=== PATIENT | female | born 1970 | race Caucasian/White ===

== ENCOUNTER 2016-09-28 15:51 | Emergency (ER) | payer OTHER ==
[~2016-09-28] VITALS: Ht 165.1 cm; Wt 119.5 kg
[2016-09-28 16:01] VITALS: TEMP 37; Ht 165.1 cm; Wt 119.5 kg
[2016-09-28] MEDS ORDERED: SODIUM CHLORIDE 0.9% 1000ML 1,000 ML IV STA (16:11)
[2016-09-28] MEDS ORDERED: KETOROLAC TROMETHAMINE 30 MG/ML VIAL IV STA (16:11)
[2016-09-28] MEDS ORDERED: ONDANSETRON INJ 2 MG/ML 2 ML VIAL IV STA (16:11)
[2016-09-28] MEDS ORDERED: ACETAMINOPHEN 500 MG TAB PO STA (16:11)
[2016-09-28] MEDS ORDERED: HYDROmorphone INJ 1 MG/ML SYR IV STA ×2 (16:11)
--- NOTE | 2016-09-28 16:17 | EMERGENCY ROOM VISIT NOTE ---
History Report prepared by Elaine: Luis E Puckett Under the Supervision of: Dr. Paolo Dubois M.D. First contact with patient: 16:06 Chief Complaint: URINARY SYMPTOMS Stated Complaint: UTI/KIDNEY INFECTION Nursing Triage Summary: urinary tract infection. pain started about 3 hrs ago. hx of kidney infection History of Present Illness The patient is a 46 year old female who presents to the Emergency Room with complaints of worsening back pain since yesterday. The patient states that the pain has significantly worsened in the past three hours. She currently rates her discomfort as a 10/10 in severity. Per the mother, the patient has been urinating very frequently, however very little urine comes out. The patient additionally complains of abdominal pain. She states that she has a past medical history of UTIs and she has a family history of kidney stones. Source of History: patient, parent Onset: two days ago Position: back Symptom Intensity: 10/10 Timing: worsening Associated Symptoms: + abdominal pain, + urinary symptoms Review of Systems See HPI for pertinent positives & negatives. A total of 10 systems reviewed and were otherwise negative. Past Medical & Surgical Medical Problems: (1) UTI (urinary tract infection) Family History Diabetes mellitus Kidney stones Social History Smoking Status: Current Every Day Smoker Drug Use: none Marital Status: Occupation Status: employed Current/Historical Medications Scheduled Ondasetron Odt (Zofran Odt), 4 MG SL Q6H Tamsulosin Hcl (Flomax), 0.4 MG PO DAILY Scheduled PRN Oxycodone/Acetaminophen 5MG/325MG (Percocet 5MG/325MG), 1-2 TABLETS PO Q4H PRN for Pain Allergies Coded Allergies: No Known Allergies (Unverified , 09/28/16) Physical Exam Vital Signs Date Time Temp Pulse Resp B/P Pulse Ox O2 Delivery O2 Flow Rate FiO2 09/28/16 18:57 84 18 119/61 98 Room Air 09/28/16 16:01 37.0 91 18 169/108 99 Room Air Physical Exam CONSTITUTIONAL: Severe painful distress. HEENT: No icterus, moist mucous membranes NECK: No meningismus, trachea is midline. CARDIOVASCULAR: Regular rate, normal perfusion RESPIRATORY: Unlabored breathing. Clear to auscultation. GASTROINTESTINAL: Non-tender GENITOURINARY: Diffuse bilateral flank pain. MUSCULOSKELETAL: Full range of motion NEUROLOGIC: No acute gross focal deficits. PSYCHIATRIC: Normal affect SKIN: Normal for ethnicity. Medical Decision & Procedures ER Provider Diagnostic Interpretation: Radiology results as stated below per my review and radiologist interpretation. CT SCAN OF THE ABDOMEN AND PELVIS WITHOUT IV CONTRAST CLINICAL HISTORY: Urinary tract infection. COMPARISON STUDY: Abdominal CT dated 06/07/2012. TECHNIQUE: CT scan of the abdomen and pelvis is performed from the lung bases to the proximal femora. Images are reviewed in the axial, sagittal, and coronal planes. IV contrast was not administered for this examination as per the referring clinician. The examination is degraded by large body habitus and by streak artifact from the body wall abutting the CT gantry. Automated dose control exposure was utilized. CT DOSE: 2210.89 mGy.cm FINDINGS: Lung bases: The heart is normal in size and without pericardial effusion. There is a calcified granuloma in the left lower lobe. The lung bases are otherwise clear noting dependent atelectasis. Liver: The unenhanced liver is enlarged, measuring 22.3 cm in length. The liver demonstrates diffusely diminished attenuation consistent with hepatic steatosis. There is mild central intrahepatic biliary ductal dilatation. Gallbladder: Surgically absent noting clips in the gallbladder fossa. Spleen: The spleen is enlarged, measuring 15 cm in length. Pancreas: Unremarkable. Adrenal glands: Unremarkable. Kidneys: The unenhanced kidneys are normal in size. There is a 4 mm obstructing calculus in the right vesicoureteral junction seen on axial image #415. This causes mild to moderate right hydroureteronephrosis. There is associated right-sided perinephric and periureteric stranding. There is an additional 4 mm calculus in the proximal right ureter seen on image #248 at the level of L3-L4. No additional right renal calculi are identified. No left renal calculi are seen and there is no left-sided hydronephrosis. There is no evidence of contour deforming renal mass lesion. Abdominal vasculature: The abdominal aorta is normal in course and caliber noting mild to moderate and age-advanced atherosclerotic calcification. Bowel: The small bowel and colon are normal in course and caliber. The appendix is well-visualized and normal. Peritoneum: There is no intraperitoneal free air or abdominal ascites. There is a fat-containing umbilical hernia. Lymphadenopathy: None. Pelvic viscera: The bladder is decompressed and grossly normal as visualized. The uterus is surgically absent. No adnexal lesion is seen. Skeletal structures: No lytic or blastic lesions are seen. IMPRESSION: 1. There is a 4 mm obstructing calculus at the right vesicoureteral junction. This causes mild to moderate right-sided hydroureteronephrosis and there is associated right-sided perinephric and periureteric stranding. 2. There is an additional 4 mm calculus in the right proximal ureter as above. 3. No additional calculi are seen in either kidney. 4. Hepatomegaly and hepatic steatosis. 5. Splenomegaly. 6. There is mild to moderate and age advanced atherosclerotic calcification of the abdominal aorta 7. Status post hysterectomy and cholecystectomy. Electronically signed by: Steven Ortega M.D. 09/28/2016 5:37 PM Dictated Date/Time: 09/28/2016 5:30 PM Laboratory Results 09/28/16 16:35 Red Blood Count 5.15, Mean Corpuscular Volume 88.3, Mean Corpuscular Hemoglobin 31.7, Mean Corpuscular Hemoglobin Concent 35.8, Mean Platelet Volume 10.1, Neutrophils (%) (Auto) 76.2, Lymphocytes (%) (Auto) 16.8, Monocytes (%) (Auto) 5.6, Eosinophils (%) (Auto) 0.7, Basophils (%) (Auto) 0.3, Neutrophils # (Auto) 9.17, Lymphocytes # (Auto) 2.03, Monocytes # (Auto) 0.67, Eosinophils # (Auto) 0.09, Basophils # (Auto) 0.04 09/28/16 16:35 Test 09/28/16 16:35 White Blood Count 12.05 K/uL (4.8-10.8) Red Blood Count 5.15 M/uL (4.2-5.4) Hemoglobin 16.3 g/dL (12.0-16.0) Hematocrit 45.5 % (37-47) Mean Corpuscular Volume 88.3 fL (80-100) Mean Corpuscular Hemoglobin 31.7 pg (25-34) Mean Corpuscular Hemoglobin Concent 35.8 g/dl (32-36) Platelet Count 249 K/uL (130-400) Mean Platelet Volume 10.1 fL (7.4-10.4) Neutrophils (%) (Auto) 76.2 % Lymphocytes (%) (Auto) 16.8 % Monocytes (%) (Auto) 5.6 % Eosinophils (%) (Auto) 0.7 % Basophils (%) (Auto) 0.3 % Neutrophils # (Auto) 9.17 K/uL (1.4-6.5) Lymphocytes # (Auto) 2.03 K/uL (1.2-3.4) Monocytes # (Auto) 0.67 K/uL (0.11-0.59) Eosinophils # (Auto) 0.09 K/uL (0-0.5) Basophils # (Auto) 0.04 K/uL (0-0.2) RDW Standard Deviation 41.0 fL (36.4-46.3) RDW Coefficient of Variation 12.8 % (11.5-14.5) Immature Granulocyte % (Auto) 0.4 % Immature Granulocyte # (Auto) 0.05 K/uL (0.00-0.02) Urine Color YELLOW Urine Appearance CLEAR (CLEAR) Urine pH 5.5 (4.5-7.5) Urine Specific [place] 1.005 (1.000-1.030) Urine Protein NEG (NEG) Urine Glucose (UA) NEG (NEG) Urine Ketones NEG (NEG) Urine Occult Blood 2+ (NEG) Urine Nitrite NEG (NEG) Urine Bilirubin NEG (NEG) Urine Urobilinogen NEG (NEG) Urine Leukocyte Esterase NEG (NEG) Urine WBC (Auto) 1-5 /hpf (0-5) Urine RBC (Auto) 0-4 /hpf (0-4) Urine Hyaline Casts (Auto) 1-5 /lpf (0-5) Urine Epithelial Cells (Auto) >30 /lpf (0-5) Urine Bacteria (Auto) NEG (NEG) Anion Gap 10.0 mmol/L (3-11) Est Creatinine Clear Calc Drug Dose 100.0 ml/min Estimated GFR () 87.2 Estimated GFR (Non- 75.2 BUN/Creatinine Ratio 9.3 (10-20) Calcium Level 9.2 mg/dl (8.5-10.1) C-Reactive Protein 1.38 mg/dl (0-0.29) Procalcitonin 0.05 ng/mL (0-0.5) Labs reviewed by ED physician. Medications Administered Medications (Trade) Dose Ordered Sig/Guillermina Route Start Time Stop Time Status Last Admin Dose Admin Acetaminophen (Tylenol Tab) 1,000 mg NOW STAT PO 09/28/16 16:11 09/28/16 16:14 DC 09/28/16 16:42 1,000 MG Hydromorphone HCl 1 mg 1 mg PRN STAT IV 09/28/16 16:11 09/28/16 16:14 DC 09/28/16 16:41 1 MG Sodium Chloride (Nss 1000ml) 1,000 ml @ 0 mls/hr Q0M STAT IV 09/28/16 16:11 09/28/16 16:14 DC 09/28/16 16:38 999 MLS/HR Ondansetron HCl (Zofran Inj) 4 mg NOW STAT IV 09/28/16 16:11 09/28/16 16:14 DC 09/28/16 16:38 4 MG Ketorolac Tromethamine (Toradol Inj) 30 mg NOW STAT IV 09/28/16 16:11 09/28/16 16:14 DC 09/28/16 16:40 30 MG ED Course 1606: Past medical records reviewed. The patient was evaluated in room B8. A complete history and physical examination was performed. 1611: Dilaudid Inj 1mg IV, Toradol Inj 30mg IV, Zofran Inj 4mg IV, Sodium Chloride 1000 ml @ 0 mls/hr wide open IV, Dilaudid Inj 1mg IV, Tylenol Tab 1000mg PO 1628: I reevaluated the patient, and she was resting 1911: Upon reexamination the patient is feeling better. I discussed results and treatment plan with the patient. She verbalizes agreement and understanding. The patient is ready for discharge. Medical Decision Differential diagnoses include but are not limited to; kidney stone. A 6-year-old presented to the emergency room with severe right-sided flank tenderness with radiation to groin. CT positive for 4 mm stone. Comfortable on reexam 7:20 PM. Percocet, Zofran, Flomax and understands to follow-up with urologist. Impression Primary Impression: Kidney stone Scribe Attestation The scribe's documentation has been prepared under my direction and personally reviewed by me in its entirety. I confirm that the note above accurately reflects all work, treatment, procedures, and medical decision making performed by me. Departure Information Dispostion Home / Self-Care Prescriptions Ondasetron Odt (ZOFRAN ODT) 4 Mg Tab 4 MG SL Q6H for Nausea, #20 TAB Prov: Paolo Dubois MD 09/28/16 Oxycodone/Acetaminophen 5MG/325MG (PERCOCET 5MG/325MG) Tab 1-2 TABLETS PO Q4H Y for Pain, #20 TAB Prov: Paolo Dubois MD 09/28/16 Tamsulosin Hcl (FLOMAX) 0.4 Mg Cap 0.4 MG PO DAILY, #10 CAP Prov: Paolo Dubois MD 09/28/16 Referrals Ganga Pina M.D. (PCP) Forms HOME CARE DOCUMENTATION FORM, IMPORTANT VISIT INFORMATION Patient Instructions ED [facility], [facility]
[2016-09-28 16:54] LABS: BASO % 0.3 %; BASO ABS # 0.04 K/uL (0-0.2); COMPLETE YES; EOS % 0.7 %; HEMATOCRIT 45.5 % (37-47); IG% 0.4 %; LYMPH % 16.8 %; LYMPH ABS # 2.03 K/uL (1.2-3.4); MEAN CELL VOLUME 88.3 fL (80-100); MEAN CORPUSCULAR HEMOGLOBIN 31.7 pg (25-34); MEAN CORPUSCULAR HGB CONC 35.8 g/dl (32-36); MEAN PLATELET VOLUME 10.1 fL (7.4-10.4); MONO % 5.6 %; NEUT % 76.2 %; PLATELET COUNT 249 K/uL (130-400); RED BLOOD COUNT 5.15 M/uL (4.2-5.4); WHITE BLOOD COUNT 12.05 K/uL (4.8-10.8)
[2016-09-28 17:17] LABS: BUN/CREATININE RATIO 9.3 (10-20); C-REACTIVE PROTEIN 1.38 mg/dl (0-0.29); CALCIUM 9.2 mg/dl (8.5-10.1); CREATININE 0.92 mg/dl (0.60-1.20); POTASSIUM 3.5 mmol/L (3.5-5.1)
[2016-09-28 17:35] LABS: URINE APPEARANCE CLEAR (CLEAR); URINE BILIRUBIN NEG (NEG); URINE COLOR YELLOW; URINE EPITHELIAL CELL AUTO >30 /lpf (0-5); URINE NITRITE NEG (NEG); URINE PH 5.5 (4.5-7.5); URINE SPECIFIC GRAVITY 1.005 (1.000-1.030); UROBILINOGEN NEG (NEG); ZZUR CULT IF INDIC CLEAN CATCH NO
[2016-09-28 17:37] LABS: MANUAL MICROSCOPIC REQUIRED? NO; REVIEW REQ? NO
--- NOTE | 2016-09-28 17:38 | DIAGNOSTIC IMAGING REPORT ---
CT SCAN OF THE ABDOMEN AND PELVIS WITHOUT IV CONTRAST CLINICAL HISTORY: Urinary tract infection. COMPARISON STUDY: Abdominal CT dated 06/07/2012. TECHNIQUE: CT scan of the abdomen and pelvis is performed from the lung bases to the proximal femora. Images are reviewed in the axial, sagittal, and coronal planes. IV contrast was not administered for this examination as per the referring clinician. The examination is degraded by large body habitus and by streak artifact from the body wall abutting the CT gantry. Automated dose control exposure was utilized. CT DOSE: 2210.89 mGy.cm FINDINGS: Lung bases: The heart is normal in size and without pericardial effusion. There is a calcified granuloma in the left lower lobe. The lung bases are otherwise clear noting dependent atelectasis. Liver: The unenhanced liver is enlarged, measuring 22.3 cm in length. The liver demonstrates diffusely diminished attenuation consistent with hepatic steatosis. There is mild central intrahepatic biliary ductal dilatation. Gallbladder: Surgically absent noting clips in the gallbladder fossa. Spleen: The spleen is enlarged, measuring 15 cm in length. Pancreas: Unremarkable. Adrenal glands: Unremarkable. Kidneys: The unenhanced kidneys are normal in size. There is a 4 mm obstructing calculus in the right vesicoureteral junction seen on axial image #415. This causes mild to moderate right hydroureteronephrosis. There is associated right-sided perinephric and periureteric stranding. There is an additional 4 mm calculus in the proximal right ureter seen on image #248 at the level of L3-L4. No additional right renal calculi are identified. No left renal calculi are seen and there is no left-sided hydronephrosis. There is no evidence of contour deforming renal mass lesion. Abdominal vasculature: The abdominal aorta is normal in course and caliber noting mild to moderate and age-advanced atherosclerotic calcification. Bowel: The small bowel and colon are normal in course and caliber. The appendix is well-visualized and normal. Peritoneum: There is no intraperitoneal free air or abdominal ascites. There is a fat-containing umbilical hernia. Lymphadenopathy: None. Pelvic viscera: The bladder is decompressed and grossly normal as visualized. The uterus is surgically absent. No adnexal lesion is seen. Skeletal structures: No lytic or blastic lesions are seen. IMPRESSION: 1. There is a 4 mm obstructing calculus at the right vesicoureteral junction. This causes mild to moderate right-sided hydroureteronephrosis and there is associated right-sided perinephric and periureteric stranding. 2. There is an additional 4 mm calculus in the right proximal ureter as above. 3. No additional calculi are seen in either kidney. 4. Hepatomegaly and hepatic steatosis. 5. Splenomegaly. 6. There is mild to moderate and age advanced atherosclerotic calcification of the abdominal aorta 7. Status post hysterectomy and cholecystectomy. Electronically signed by: Steven Ortega M.D. 09/28/2016 5:37 PM Dictated Date/Time: 09/28/2016 5:30 PM
[2016-09-28 18:57] VITALS: BP 119/61; PULSE 84; O2SAT 98
[2016-09-28] MEDS ORDERED: OXYC-57 PO (18:59)
[2016-09-28] MEDS ORDERED: TAMS0.4C38 PO (18:59)
[2016-09-28] MEDS ORDERED: ONDA4TAB10 SL (18:59)
[2016-11-25] MEDS ORDERED: OXYC1TAB3 PO (11:18)
[2016-11-25] MEDS ORDERED: CIPR-255 PO (11:18)
[2016-11-25] MEDS ORDERED: TAMS0.4C38 PO (11:18)
[2016-11-27] MEDS ORDERED: OXYC-57 PO (10:44)
[2016-11-27] MEDS ORDERED: CIPR1TAB11 PO (11:17)
== END 2016-09-28 19:23 | disposition home or self-care (01) ==
LOC: C.EDB 15:51
DX: N20.2 Calculus of kidney with calculus of ureter (principal); F17.200 Nicotine dependence, unspecified, uncomplicated; Z87.440 Personal history of urinary (tract) infections; Z79.899 Other long term (current) drug therapy; Z83.3 Family history of diabetes mellitus; Z84.1 Family history of disorders of kidney and ureter

== ENCOUNTER 2016-10-31 13:58 | Emergency (ER) | payer OTHER ==
[~2016-10-31] VITALS: Ht 165.1 cm; Wt 116.8 kg
[~2016-10-31 13:58] MED LIST: ONDA4TAB10 SL; OXYC-57 PO
[2016-10-31 14:02] VITALS: TEMP 37.1; Ht 165.1 cm; Wt 116.8 kg
[2016-10-31] MEDS ORDERED: METHYLPREDNISOLONE 125 MG VIAL IV STA (14:26)
[2016-10-31] MEDS ORDERED: ONDANSETRON INJ 2 MG/ML 2 ML VIAL IV STA (14:26)
[2016-10-31] MEDS ORDERED: KETOROLAC TROMETHAMINE 30 MG/ML VIAL IV STA (14:26)
[2016-10-31] MEDS ORDERED: SODIUM CHLORIDE 0.9% 1000ML 1,000 ML IV ONE ×2 (14:30)
[2016-10-31] MEDS ORDERED: ALBUT/IPRATROP 3MG/0.5MG NEB 3 ML VIAL INH ONE (14:30)
[2016-10-31 15:16] LABS: BUN/CREATININE RATIO 10.5 (10-20); CALCIUM 9.1 mg/dl (8.5-10.1); CREATININE 0.95 mg/dl (0.60-1.20); POTASSIUM 4.2 mmol/L (3.5-5.1)
[2016-10-31 15:19] LABS: ALB/GLOB RATIO 1.1 (0.9-2)
[2016-10-31 15:56] LABS: BASO % 0.2 %; BASO ABS # 0.02 K/uL (0-0.2); COMPLETE YES; EOS % 0.2 %; HEMATOCRIT 45.4 % (37-47); IG% 0.3 %; LYMPH % 8.4 %; LYMPH ABS # 1.04 K/uL (1.2-3.4); MEAN CELL VOLUME 88.5 fL (80-100); MEAN CORPUSCULAR HEMOGLOBIN 31.4 pg (25-34); MEAN CORPUSCULAR HGB CONC 35.5 g/dl (32-36); MEAN PLATELET VOLUME 10.5 fL (7.4-10.4); MONO % 3.1 %; NEUT % 87.8 %; PLATELET COUNT 158 K/uL (130-400); RED BLOOD COUNT 5.13 M/uL (4.2-5.4); WHITE BLOOD COUNT 12.41 K/uL (4.8-10.8)
[2016-10-31 16:05] LABS: URINE APPEARANCE TURBID (CLEAR); URINE COLOR DK YELLOW; URINE EPITHELIAL CELL AUTO >30 /lpf (0-5); URINE NITRITE POS (NEG); URINE SPECIFIC GRAVITY 1.025 (1.000-1.030); UROBILINOGEN NEG (NEG); ZZUR CULT IF INDIC CLEAN CATCH YES
--- NOTE | 2016-10-31 16:16 | DIAGNOSTIC IMAGING REPORT ---
ABDOMEN 2VIEW W/PA CHEST RTN CLINICAL HISTORY: Cough. Vomiting COMPARISON STUDY: No previous studies for comparison. FINDINGS: Minimal bibasilar parenchymal infiltrates. Mid and upper lungs are clear. Bowel pattern is nonobstructive. Several pelvic vascular calcifications IMPRESSION: Minimal bibasilar parenchymal infiltrates.. 2. Nonobstructive bowel pattern. Electronically signed by: Nikita Reese M.D. 10/31/2016 4:15 PM Dictated Date/Time: 10/31/2016 4:11 PM
[2016-10-31 16:23] LABS: MANUAL MICROSCOPIC REQUIRED? NO; REVIEW REQ? YES; URINE BILIRUBIN NEG (NEG)
[2016-10-31] MEDS ORDERED: LEVAQUIN 500MG / 100ML D5W IV ONE (16:30)
[2016-10-31] MEDS ORDERED: PRED20TA PO (16:51)
[2016-10-31] MEDS ORDERED: LEVO-366 PO (16:51)
[2016-10-31 17:28] VITALS: BP 168/86; PULSE 81; O2SAT 95
--- NOTE | 2016-10-31 20:03 | EMERGENCY ROOM VISIT NOTE ---
History First contact with patient: 14:19 Chief Complaint: ILLNESS Stated Complaint: BRONCHITIS, SOB, DIZZY, VOMITING History of Present Illness The patient is a 46 year old female who presents to the Emergency Room with complaints of cough and fever for the past 5 days. The patient states that today she coughed so hard that she had vomiting. When she coughs she will have dizzy spells. The patient does smoke, but has not been able to do so because of her symptoms. She does not have known exposure to disease. She has not had relief with dbal-ioi-duizwnm medication and rates her current discomfort a 9/ 10. She has not been with distinct chest pain or shortness of breath at rest. When she coughs she will have episodes of shortness of breath. She does not have extremity pain or swelling. Review of Systems More than 10 systems were reviewed and otherwise negative with the exception of history of present illness. Past Medical/Surgical History Medical Problems: (1) UTI (urinary tract infection) Family History Diabetes mellitus Kidney stones No pertinent family history Social History Smoking Status: Current Every Day Smoker Drug Use: none Marital Status: Occupation Status: employed Current/Historical Medications Scheduled Levofloxacin (Levaquin), 500 MG PO DAILY Prednisone (Prednisone), 0 PO DAILY Allergies Coded Allergies: No Known Allergies (Unverified , 09/28/16) Physical Exam Vital Signs Date Time Temp Pulse Resp B/P Pulse Ox O2 Delivery O2 Flow Rate FiO2 10/31/16 17:28 81 17 168/86 95 Room Air 10/31/16 16:12 83 18 152/68 94 Room Air 10/31/16 14:02 37.1 73 22 175/83 95 Room Air Pain Rating (0-10): 0 Physical Exam VITALS: Vitals are noted on the nurse's note and reviewed by myself. Vital signs stable. GENERAL: Well-developed, well-nourished, white female, who is coughing throughout the examination. EARS: External ear normal. External auditory canals clear, tympanic membranes pearly [place] without erythema or effusion bilaterally. EYES: Pupils equal round and reactive to light and accommodation. Conjunctivae without injection, sclerae without icterus. Extraocular movements intact. NOSE: Patent, turbinates without inflammation or discharge. MOUTH: Mucous membranes moist. Tonsils are not enlarged. Pharynx without erythema, blood, or exudate. Uvula midline. Airway patent. NECK: Supple without nuchal rigidity. No lymphadenopathy. No thyromegaly. Cervical spine is nontender. HEART: Regular rate and rhythm without murmurs gallops or rubs. LUNGS: Diffuse wheezing and rhonchi throughout ABDOMEN: Positive normal bowel sounds x 4. Soft, nontender, without masses or organomegaly. Medical Decision & Procedures ER Provider Diagnostic Interpretation: ABDOMEN 2VIEW W/PA CHEST RTN CLINICAL HISTORY: Cough. Vomiting COMPARISON STUDY: No previous studies for comparison. FINDINGS: Minimal bibasilar parenchymal infiltrates. Mid and upper lungs are clear. Bowel pattern is nonobstructive. Several pelvic vascular calcifications IMPRESSION: Minimal bibasilar parenchymal infiltrates.. 2. Nonobstructive bowel pattern. Laboratory Results 10/31/16 14:45 Red Blood Count 5.13, Mean Corpuscular Volume 88.5, Mean Corpuscular Hemoglobin 31.4, Mean Corpuscular Hemoglobin Concent 35.5, Mean Platelet Volume 10.5, Neutrophils (%) (Auto) 87.8, Lymphocytes (%) (Auto) 8.4, Monocytes (%) (Auto) 3.1, Eosinophils (%) (Auto) 0.2, Basophils (%) (Auto) 0.2, Neutrophils # (Auto) 10.90, Lymphocytes # (Auto) 1.04, Monocytes # (Auto) 0.39, Eosinophils # (Auto) 0.02, Basophils # (Auto) 0.02 10/31/16 14:45 Test 10/31/16 14:45 10/31/16 15:05 10/31/16 15:55 White Blood Count 12.41 K/uL (4.8-10.8) Red Blood Count 5.13 M/uL (4.2-5.4) Hemoglobin 16.1 g/dL (12.0-16.0) Hematocrit 45.4 % (37-47) Mean Corpuscular Volume 88.5 fL (80-100) Mean Corpuscular Hemoglobin 31.4 pg (25-34) Mean Corpuscular Hemoglobin Concent 35.5 g/dl (32-36) Platelet Count 158 K/uL (130-400) Mean Platelet Volume 10.5 fL (7.4-10.4) Neutrophils (%) (Auto) 87.8 % Lymphocytes (%) (Auto) 8.4 % Monocytes (%) (Auto) 3.1 % Eosinophils (%) (Auto) 0.2 % Basophils (%) (Auto) 0.2 % Neutrophils # (Auto) 10.90 K/uL (1.4-6.5) Lymphocytes # (Auto) 1.04 K/uL (1.2-3.4) Monocytes # (Auto) 0.39 K/uL (0.11-0.59) Eosinophils # (Auto) 0.02 K/uL (0-0.5) Basophils # (Auto) 0.02 K/uL (0-0.2) RDW Standard Deviation 42.3 fL (36.4-46.3) RDW Coefficient of Variation 12.9 % (11.5-14.5) Immature Granulocyte % (Auto) 0.3 % Immature Granulocyte # (Auto) 0.04 K/uL (0.00-0.02) Anion Gap 8.0 mmol/L (3-11) Est Creatinine Clear Calc Drug Dose 95.5 ml/min Estimated GFR () 83.8 Estimated GFR (Non- 72.3 BUN/Creatinine Ratio 10.5 (10-20) Calcium Level 9.1 mg/dl (8.5-10.1) Total Bilirubin 0.4 mg/dl (0.2-1) Aspartate Amino Transf (AST/SGOT) 49 U/L (15-37) Alanine Aminotransferase (ALT/SGPT) 97 U/L (12-78) Alkaline Phosphatase 190 U/L (45-117) Total Protein 8.1 gm/dl (6.4-8.2) Albumin 4.2 gm/dl (3.4-5.0) Globulin 3.9 gm/dl (2.5-4.0) Albumin/Globulin Ratio 1.1 (0.9-2) Influenza Type A Antigen Neg for Influ A (NEG) Influenza Type B Antigen Neg for Influ B (NEG) Urine Color DK YELLOW Urine Appearance TURBID (CLEAR) Urine pH 5.0 (4.5-7.5) Urine Specific [place] 1.025 (1.000-1.030) Urine Protein 1+ (NEG) Urine Glucose (UA) NEG (NEG) Urine Ketones 2+ (NEG) Urine Occult Blood 3+ (NEG) Urine Nitrite POS (NEG) Urine Bilirubin NEG (NEG) Urine Urobilinogen NEG (NEG) Urine Leukocyte Esterase TRACE (NEG) Urine WBC (Auto) 10-30 /hpf (0-5) Urine RBC (Auto) 0-4 /hpf (0-4) Urine Hyaline Casts (Auto) /lpf (0-5) Urine Epithelial Cells (Auto) >30 /lpf (0-5) Urine Bacteria (Auto) 1+ (NEG) Urine Crystals AMORPHOUS SEDIMENT (NONE Urine Pathogenic Casts /lpf (0) Urine Yeast (Auto) (NONE PRSENT) Medications Administered Medications (Trade) Dose Ordered Sig/Guillermina Route Start Time Stop Time Status Last Admin Dose Admin Sodium Chloride (Nss 1000ml) 1,000 ml @ 999 mls/hr Q1H1M ONCE IV 10/31/16 14:30 10/31/16 15:30 DC 10/31/16 15:12 999 MLS/HR Methylprednisolone Sodium Succinate (Solu-Medrol IV) 125 mg NOW STAT IV 10/31/16 14:26 10/31/16 14:31 DC 10/31/16 14:56 125 MG Ondansetron HCl (Zofran Inj) 4 mg NOW STAT IV 10/31/16 14:26 10/31/16 14:31 DC 10/31/16 14:56 4 MG Ketorolac Tromethamine (Toradol Inj) 30 mg NOW STAT IV 10/31/16 14:26 10/31/16 14:31 DC 10/31/16 14:56 30 MG Albuterol/ Ipratropium 3 ml 3 ml NOW ONCE INH 10/31/16 14:30 10/31/16 14:31 DC 10/31/16 14:55 3 ML Sodium Chloride (Nss 1000ml) 1,000 ml @ 999 mls/hr Q1H1M ONCE IV 10/31/16 14:30 10/31/16 15:30 DC 10/31/16 14:30 999 MLS/HR Levofloxacin (Levaquin / D5W) 500 mg NOW ONCE IV 10/31/16 16:30 10/31/16 16:31 DC 10/31/16 16:30 500 MG ED Course Physical exam and history were performed. Nursing notes and EMR were reviewed. Patient appears to have coughing of flulike symptoms for the past 5 days. On exam the patient does have diffuse wheezing and rhonchi throughout. She is having a persistent cough here in the department. IV access was established and labs were obtained. The patient was hydrated with normal saline and given IV Toradol and IV Solu-Medrol. Additionally she was given a breathing treatment. Chest x-ray and abdominal x-rays were performed as the patient is having rhonchi and had some vomiting today. The patient's blood work is as above and was reviewed. She does have a very mild white blood cell count of 12,000. She does not have a significant anemia or gross electrolyte imbalance. Her LFTs are elevated, however review of the EMR in the past shows that they have been elevated previously. I recommended to her that she follow with her primary care physician for this. The patient's x-ray is as above and appears to show by basilar infiltrates. Clinically I suspect this is due to an early pneumonia, as this would correlate well with the patient's symptoms. The patient's urine also is with signs of infection with culture pending. Because of this she was given IV Levaquin here in the department. She will be given a continuation course of this medication. On reevaluation the patient had significantly improved breath sounds. She did have scattered wheezing and slight right lower lung crackles on exam. The patient appears stable for outpatient treatment, and I will add oral prednisone to her treatment. I recommended the patient follow with her PCP in the next few days for recheck of her condition. She will need a repeat x-ray to ensure resolution of the pneumonia. I suspect that her abdominal discomfort and vomiting are from her cough, and they should improve given time. The patient was otherwise invited back to the ER with any new, worsening, or concerning symptoms. She voiced understanding of this plan and rated her discomfort a 2/ 10 at the time of departure. The chart was completed utilizing [employer] Voice Recognition Software. Grammatical errors, random word insertions, pronoun errors, and incomplete sentences are an occasional consequence of this system due to software limitations, ambient noise, and hardware issues. Any formal questions or concerns about the content, text, or information contained within the body of this dictation should be directly addressed to the provider for clarification. . Medical Decision Differential diagnosis includes, but is not limited to: Myocardial infarction, dysrhythmia, pericarditis, pneumothorax, aortic aneurysm/dissection, DVT/PE, anxiety, GERD, PUD, electrolyte imbalance, thyroid disorder, pneumonia, bronchitis, pancreatitis, and others Impression Primary Impression: Pneumonia Additional Impression: Urinary tract infection Departure Information Dispostion Home / Self-Care Condition GOOD Prescriptions Prednisone (Prednisone) 20 Mg Tab 0 PO DAILY, #18 TAB 3 DAILY FOR 3 DAYS, THEN 2 DAILY FOR 3 DAYS, THEN 1 DAILY FOR 3 DAYS. Prov: Marcos Nazario PA-C 10/31/16 Levofloxacin (Levaquin) 500 Mg Tab 500 MG PO DAILY for 9 Days, #9 TAB Prov: Marcos Nazario PA-C 10/31/16 Forms HOME CARE DOCUMENTATION FORM, IMPORTANT VISIT INFORMATION Patient Instructions [facility] Additional Instructions You were seen and evaluated today on an emergency basis only. This is not a substitute for, or an effort to provide, complete comprehensive medical care. It is not possible to recognize and treat all injuries or illnesses in a single emergency department visit. For this reason it is recommended that you followup with your primary care physician this week for ongoing care and evaluation. For baseline pain relief you may alternate ibuprofen and acetaminophen every 4 hours for pain control. Take 600 mg ibuprofen (Advil) and then 4 hours later take 1000 mg acetaminophen (Tylenol). Do not take more than 3000 mg acetaminophen in a single day. Take Levaquin 500 milligrams daily for the next 9 days. Take prednisone as prescribed You are welcome to return to the emergency department anytime with new, worsening, or concerning symptoms. Problem Qualifiers
[2016-11-25] MEDS ORDERED: OXYC1TAB3 PO (11:18)
[2016-11-25] MEDS ORDERED: CIPR-255 PO (11:18)
[2016-11-25] MEDS ORDERED: TAMS0.4C38 PO (11:18)
[2016-11-27] MEDS ORDERED: OXYC-57 PO (10:44)
[2016-11-27] MEDS ORDERED: CIPR1TAB11 PO (11:17)
== END 2016-10-31 17:45 | disposition home or self-care (01) ==
LOC: C.EDB 14:00
DX: J18.9 Pneumonia, unspecified organism (principal); N39.0 Urinary tract infection, site not specified; F17.200 Nicotine dependence, unspecified, uncomplicated; Z87.440 Personal history of urinary (tract) infections; Z79.899 Other long term (current) drug therapy; Z83.3 Family history of diabetes mellitus; Z84.1 Family history of disorders of kidney and ureter

== ENCOUNTER → 2016-11-10 | Outpatient (CLI) | payer OTHER ==
[~2016-11-10] MED LIST changes: +CIPR-255 PO; +CIPR1TAB11 PO; +LEVO-366 PO; -ONDA4TAB10 SL; +OXYC1TAB3 PO; +PRED20TA PO; +TAMS0.4C38 PO
[2016-11-10 13:01] LABS: BASO % 0.2 %; BASO ABS # 0.02 K/uL (0-0.2); COMPLETE YES; EOS % 0.8 %; HEMATOCRIT 45.1 % (37-47); IG% 1.6 %; LYMPH % 26.2 %; LYMPH ABS # 3.42 K/uL (1.2-3.4); MEAN CELL VOLUME 88.6 fL (80-100); MEAN CORPUSCULAR HEMOGLOBIN 30.3 pg (25-34); MEAN CORPUSCULAR HGB CONC 34.1 g/dl (32-36); MEAN PLATELET VOLUME 10.4 fL (7.4-10.4); MONO % 5.5 %; NEUT % 65.7 %; PLATELET COUNT 216 K/uL (130-400); RED BLOOD COUNT 5.09 M/uL (4.2-5.4); WHITE BLOOD COUNT 13.07 K/uL (4.8-10.8)
[2016-11-10 13:02] LABS: URINE APPEARANCE CLEAR (CLEAR); URINE BILIRUBIN NEG (NEG); URINE COLOR YELLOW; URINE EPITHELIAL CELL AUTO 20-30 /lpf (0-5); URINE NITRITE NEG (NEG); URINE SPECIFIC GRAVITY 1.022 (1.000-1.030); UROBILINOGEN NEG (NEG)
[2016-11-10 13:07] LABS: MANUAL MICROSCOPIC REQUIRED? NO; REVIEW REQ? NO
[2016-11-10 13:17] LABS: ALKALINE PHOSPHATASE 129 U/L (45-117); ALT/SGPT 62 U/L (12-78); AST/SGOT 31 U/L (15-37)
== END | disposition home or self-care (01) ==
LOC: C.LABBFT 11:14
PROVIDERS: ATTEND Physician Assistant Medical
DX: R74.8 Abnormal levels of other serum enzymes (principal); N76.0 Acute vaginitis; B37.0 Candidal stomatitis; J18.9 Pneumonia, unspecified organism; N39.0 Urinary tract infection, site not specified

== ENCOUNTER → 2016-11-17 | Outpatient (CLI) | payer OTHER ==
[~2016-11-17] MED LIST changes: -LEVO-366 PO
--- NOTE | 2016-11-17 16:35 | DIAGNOSTIC IMAGING REPORT ---
[facility] CLINICAL HISTORY: R31.29 nephrocalcinosis COMPARISON STUDY: 10/31/2016 FINDINGS: The soft tissues, psoas shadows, renal outlines and intestinal gas pattern appear normal. There is no evidence for bowel obstruction. No abnormal abdominal calcifications are seen. IMPRESSION: Normal study. Electronically signed by: Nikita Reese M.D. 11/17/2016 4:34 PM Dictated Date/Time: 11/17/2016 4:33 PM
== END | disposition home or self-care (01) ==
LOC: C.RAD 16:00
PROVIDERS: ATTEND Physician Assistant Medical
DX: R31.29 Other microscopic hematuria (principal)

== ENCOUNTER 2016-11-23 10:06 | Emergency (ER) | payer OTHER ==
[~2016-11-23] VITALS: Ht 165.1 cm; Wt 118.2 kg
[~2016-11-23 10:06] MED LIST changes: -CIPR-255 PO; -CIPR1TAB11 PO; -OXYC-57 PO; -OXYC1TAB3 PO; -TAMS0.4C38 PO
[2016-11-23 10:11] VITALS: TEMP 37; Ht 165.1 cm; Wt 118.2 kg
[2016-11-23] MEDS ORDERED: KETOROLAC TROMETHAMINE 30 MG/ML VIAL IV STA (10:28)
[2016-11-23] MEDS ORDERED: SODIUM CHLORIDE 0.9% 1000ML 1,000 ML IV STA (10:28)
[2016-11-23] MEDS ORDERED: ONDANSETRON INJ 2 MG/ML 2 ML VIAL IV STA (10:28)
[2016-11-23 10:56] LABS: BASO % 0.2 %; BASO ABS # 0.02 K/uL (0-0.2); COMPLETE YES; EOS % 0.5 %; HEMATOCRIT 43.5 % (37-47); IG% 0.6 %; LYMPH % 10.1 %; LYMPH ABS # 1.21 K/uL (1.2-3.4); MEAN CELL VOLUME 87.3 fL (80-100); MEAN CORPUSCULAR HEMOGLOBIN 30.1 pg (25-34); MEAN CORPUSCULAR HGB CONC 34.5 g/dl (32-36); MEAN PLATELET VOLUME 9.4 fL (7.4-10.4); MONO % 5.4 %; NEUT % 83.2 %; PLATELET COUNT 203 K/uL (130-400); RED BLOOD COUNT 4.98 M/uL (4.2-5.4); WHITE BLOOD COUNT 11.95 K/uL (4.8-10.8)
[2016-11-23 11:10] LABS: MANUAL MICROSCOPIC REQUIRED? YES; REVIEW REQ? NO; SULFASALICYLIC ACID NEG (NEG); URINE APPEARANCE SLIGHTLY CLOUDY (CLEAR); URINE COLOR ORANGE
[2016-11-23 11:14] LABS: BUN/CREATININE RATIO 7.5 (10-20); CALCIUM 9.3 mg/dl (8.5-10.1); POTASSIUM 3.7 mmol/L (3.5-5.1)
[2016-11-23 11:14] LABS: URINE BACTERIA 1+ (NEG)
[2016-11-23 11:15] LABS: URINE AMORPHOUS SEDIMENT PRESENT (NONE PRSENT)
[2016-11-23 11:17] LABS: ZZUR CULT IF INDIC CLEAN CATCH YES
--- NOTE | 2016-11-23 11:33 | DIAGNOSTIC IMAGING REPORT ---
CT OF THE ABDOMEN AND PELVIS WITHOUT CONTRAST CLINICAL HISTORY: Severe right flank pain. COMPARISON STUDY: CT of the abdomen and pelvis September 28, 2016 and [facility]UB November 17, 2016. TECHNIQUE: Axial images of the abdomen and pelvis were obtained without IV contrast. Images were reviewed in the axial, sagittal, and coronal planes. FINDINGS: There is moderate right hydroureteronephrosis due to a 7 mm calculus within the distal right ureter. There is mild right perinephric and periureteral ureteral infiltration. Evaluation of the remainder of the abdomen and pelvis is suboptimal on this unenhanced exam. There is fatty infiltration of the liver. Unenhanced images of the adrenal glands and pancreas are unremarkable. There is no evidence for a bowel obstruction. There is no lymphadenopathy. No suspicious skeletal lesions are identified. Mild splenomegaly is unchanged. IMPRESSION: 1. Moderate right hydroureteronephrosis due to a 7 mm distal right ureteral calculus. 2. Fatty liver. Electronically signed by: Leonidas Hennessy M.D. 11/23/2016 11:31 AM Dictated Date/Time: 11/23/2016 11:26 AM
[2016-11-23 12:40] LABS: MANUAL MICROSCOPIC REQUIRED? YES; REVIEW REQ? NO
[2016-11-23 12:41] LABS: SULFASALICYLIC ACID NEG (NEG); URINE APPEARANCE SLIGHTLY CLOUDY (CLEAR); URINE COLOR ORANGE
[2016-11-23 12:45] LABS: URINE AMORPHOUS SEDIMENT PRESENT (NONE PRSENT)
[2016-11-23 12:46] LABS: URINE BACTERIA 1+ (NEG)
[2016-11-23 12:49] LABS: ZZURINE CULT IF INDIC CATH YES
[2016-11-23 13:01] LABS: PREG INTERNAL NEGATIVE QC NEG CLEAR BACKGROUND; PREG INTERNAL POSITIVE QC POS CONTROL LINE
[2016-11-23] MEDS ORDERED: CIPROFLOXACIN 500 MG TAB PO STA (13:49)
[2016-11-23] MEDS ORDERED: HYDROmorphone INJ 0.5 MG/0.5 ML SYR IV STA (13:52)
[2016-11-23] MEDS ORDERED: TAMS0.4C38 PO (13:55)
[2016-11-23] MEDS ORDERED: OXYC1TAB3 PO (13:55)
[2016-11-23] MEDS ORDERED: CIPR-255 PO (13:55)
[2016-11-23 14:10] VITALS: BP 162/77; PULSE 76; O2SAT 96
--- NOTE | 2016-11-23 15:56 | EMERGENCY ROOM VISIT NOTE ---
History Report prepared by Elaine: Tarun Johnson Under the Supervision of: Dr. Alex Hernandez D.O. First contact with patient: 10:14 Chief Complaint: URINARY SYMPTOMS Stated Complaint: UTI, KIDNEY STONE History of Present Illness The patient is a 46 year old female who presents to the Emergency Room with complaints of persistent urinary symptoms for the past two weeks. The patient notes she was in the ED a month ago and was treated with steroids for double pneumonia and a UTI. The patient notes that 2 weeks ago she presented to her PCP again because she was still having urinary symptoms including frequency, vaginal discomfort, and burning with urination. She denies vaginal discharge. The patient was put on Bactrim, however, it did not help relieve her symptoms. She followed up with her PCP last week when the medication wasn't working and they told her she did not have a UTI. This past week, the patient has started to have back pain, vomiting, and diarrhea. She notes she woke up 7 hours ago with vomiting and diarrhea. The patient has had kidney stones in the past and notes her symptoms feel similar. She is unsure if there is blood in her urine since she is taking a UTI medication that changes the color of her urine. Pt denies headache, change in vision, fevers, chest pain, and shortness of breath. Source of History: patient Onset: past two weeks Position: other () Timing: other (persistent) Associated Symptoms: + back pain, + diarrhea, + urinary symptoms (frequency , vaginal discomfort, burning), + vomiting, No SOB, No chest pain, No headache Note: Denies: vision changes Review of Systems See HPI for pertinent positives & negatives. A total of 10 systems reviewed and were otherwise negative. Past Medical & Surgical Medical Problems: (1) UTI (urinary tract infection) Family History Diabetes mellitus Kidney stones Social History Smoking Status: Current Every Day Smoker Drug Use: none Marital Status: Occupation Status: employed Current/Historical Medications Scheduled Ciprofloxacin Hcl (Cipro), 500 MG PO BID Tamsulosin Hcl (Flomax), 0.4 MG PO DAILY Scheduled PRN Oxycodone Immediate Rel Tab (Roxicodone Ir), 1-2 TAB PO Q4H PRN for Severe Pain Allergies Coded Allergies: No Known Allergies (Unverified , 11/23/16) Physical Exam Vital Signs Date Time Temp Pulse Resp B/P Pulse Ox O2 Delivery O2 Flow Rate FiO2 11/23/16 14:10 76 20 162/77 96 11/23/16 11:29 80 18 133/67 95 Room Air 11/23/16 10:11 37.0 91 18 166/82 97 Room Air Physical Exam GENERAL: sitting up in bed, rocking back and forth holding right flank, moderate distress. EYE EXAM: normal conjunctiva, OROPHARYNX: no exudate, no erythema, lips, buccal mucosa, and tongue normal and mucous membranes are moist NECK: supple, no nuchal rigidity, no adenopathy, non-tender LUNGS: Clear to auscultation. Normal chest wall mechanics HEART: no murmurs, S1 normal and S2 normal ABDOMEN: abdomen soft, non-tender, normo-active bowel sounds, no masses, no rebound or guarding. BACK: Back is symmetrical on inspection and there is no deformity, no midline tenderness, no CVA tenderness. SKIN: no rashes and no bruising UPPER EXTREMITIES: upper extremities are grossly normal. LOWER EXTREMITIES: No pitting edema. NEURO EXAM: Normal sensorium, cranial nerves II-XII grossly intact, normal speech, no gross weakness of arms, no gross weakness of legs. Gross sensation intact. Medical Decision & Procedures ER Provider Diagnostic Interpretation: Radiology results as stated below per my review and the radiologist's interpretation: CT OF THE ABDOMEN AND PELVIS WITHOUT CONTRAST CLINICAL HISTORY: Severe right flank pain. COMPARISON STUDY: CT of the abdomen and pelvis September 28, 2016 and [facility]UB November 17, 2016. TECHNIQUE: Axial images of the abdomen and pelvis were obtained without IV contrast. Images were reviewed in the axial, sagittal, and coronal planes. FINDINGS: There is moderate right hydroureteronephrosis due to a 7 mm calculus within the distal right ureter. There is mild right perinephric and periureteral ureteral infiltration. Evaluation of the remainder of the abdomen and pelvis is suboptimal on this unenhanced exam. There is fatty infiltration of the liver. Unenhanced images of the adrenal glands and pancreas are unremarkable. There is no evidence for a bowel obstruction. There is no lymphadenopathy. No suspicious skeletal lesions are identified. Mild splenomegaly is unchanged. IMPRESSION: 1. Moderate right hydroureteronephrosis due to a 7 mm distal right ureteral calculus. 2. Fatty liver. Electronically signed by: Leonidas Hennessy M.D. 11/23/2016 11:31 AM Dictated Date/Time: 11/23/2016 11:26 AM Laboratory Results 11/23/16 10:40 Red Blood Count 4.98, Mean Corpuscular Volume 87.3, Mean Corpuscular Hemoglobin 30.1, Mean Corpuscular Hemoglobin Concent 34.5, Mean Platelet Volume 9.4, Neutrophils (%) (Auto) 83.2, Lymphocytes (%) (Auto) 10.1, Monocytes (%) (Auto) 5.4, Eosinophils (%) (Auto) 0.5, Basophils (%) (Auto) 0.2, Neutrophils # (Auto) 9.94, Lymphocytes # (Auto) 1.21, Monocytes # (Auto) 0.65, Eosinophils # (Auto) 0.06, Basophils # (Auto) 0.02 11/23/16 10:40 Test 11/23/16 10:33 11/23/16 10:40 11/23/16 12:00 Urine Calcium Oxalate Crystals PRESENT (NONE PRSENT) White Blood Count 11.95 K/uL (4.8-10.8) Red Blood Count 4.98 M/uL (4.2-5.4) Hemoglobin 15.0 g/dL (12.0-16.0) Hematocrit 43.5 % (37-47) Mean Corpuscular Volume 87.3 fL (80-100) Mean Corpuscular Hemoglobin 30.1 pg (25-34) Mean Corpuscular Hemoglobin Concent 34.5 g/dl (32-36) Platelet Count 203 K/uL (130-400) Mean Platelet Volume 9.4 fL (7.4-10.4) Neutrophils (%) (Auto) 83.2 % Lymphocytes (%) (Auto) 10.1 % Monocytes (%) (Auto) 5.4 % Eosinophils (%) (Auto) 0.5 % Basophils (%) (Auto) 0.2 % Neutrophils # (Auto) 9.94 K/uL (1.4-6.5) Lymphocytes # (Auto) 1.21 K/uL (1.2-3.4) Monocytes # (Auto) 0.65 K/uL (0.11-0.59) Eosinophils # (Auto) 0.06 K/uL (0-0.5) Basophils # (Auto) 0.02 K/uL (0-0.2) RDW Standard Deviation 42.0 fL (36.4-46.3) RDW Coefficient of Variation 13.2 % (11.5-14.5) Immature Granulocyte % (Auto) 0.6 % Immature Granulocyte # (Auto) 0.07 K/uL (0.00-0.02) Anion Gap 10.0 mmol/L (3-11) Est Creatinine Clear Calc Drug Dose 91.4 ml/min Estimated GFR () 78.8 Estimated GFR (Non- 68.0 BUN/Creatinine Ratio 7.5 (10-20) Calcium Level 9.3 mg/dl (8.5-10.1) Total Bilirubin 0.5 mg/dl (0.2-1) Direct Bilirubin 0.1 mg/dl (0-0.2) Aspartate Amino Transf (AST/SGOT) 29 U/L (15-37) Alanine Aminotransferase (ALT/SGPT) 70 U/L (12-78) Alkaline Phosphatase 181 U/L (45-117) Total Protein 7.5 gm/dl (6.4-8.2) Albumin 3.8 gm/dl (3.4-5.0) Lipase 298 U/L (73-393) Human Chorionic Gonadotropin, Qual NEG (NEG) Urine Color ORANGE Urine Appearance SLIGHTLY CLOUDY (CLEAR) Urine pH (4.5-7.5) Urine Specific [place] (1.000-1.030) Urine Protein NEG (NEG) Urine Glucose (UA) (NEG) Urine Ketones (NEG) Urine Occult Blood (NEG) Urine Nitrite (NEG) Urine Bilirubin (NEG) Urine Urobilinogen (NEG) Urine Leukocyte Esterase (NEG) Urine RBC 10-30 /hpf (0-4) Urine WBC 10-30 /hpf (0-5) Urine Epithelial Cells 10-20 /lpf (0-5) Urine Amorphous Sediment PRESENT (NONE PRSENT) Urine Bacteria 1+ (NEG) Laboratory results per my review. Medications Administered Medications (Trade) Dose Ordered Sig/Guillermina Route Start Time Stop Time Status Last Admin Dose Admin Sodium Chloride (Nss 1000ml) 1,000 ml @ 999 mls/hr Q1H1M STAT IV 11/23/16 10:28 11/23/16 11:28 DC 11/23/16 10:28 999 MLS/HR Ketorolac Tromethamine (Toradol Inj) 30 mg NOW STAT IV 11/23/16 10:28 11/23/16 10:30 DC 11/23/16 10:55 30 MG Ondansetron HCl (Zofran Inj) 4 mg NOW STAT IV 11/23/16 10:28 11/23/16 10:30 DC 11/23/16 10:54 4 MG ED Course ED COURSE: Vital signs were reviewed and showed hypertensive. The patients medical record was reviewed The above diagnostic studies were performed and reviewed. ED treatments and interventions as stated above. 1020: The patient was evaluated in room C4. A complete history and physical examination was performed. 1028: Ordered Zofran Inj 4 mg IV, Toradol Inj 30 mg IV, NSS 1000 ml @ 999 mls/ hr IV. 1334: At this time, I discussed the patient's case with Maritza FLORES - Urology [facility] and she agreed to follow-up with the patient in the morning. She recommended discharging patient on Cipro. 1349: Ordered Cipro Tab 500 mg PO. 1351: At this time, I updated the patient on her findings. 1352: Ordered Dilaudid Inj 0.5 mg IV. []: Upon reevaluation, the patient is [].I discussed my findings with the [ patient] and [] understands and agrees with the treatment plan. Based on the patients age, coexisting illnesses, exam and lab findings the decision to treat as an [inpatient][outpatient] was made. The patient remained stable while under my care. [The patient appeared well at the time of discharge.] [The patient will be evaluated for further management.] Medical Decision Differential diagnoses includes but is not limited to gastritis, peptic ulcer disease, GERD, gallbladder disease, pancreatitis, small bowel obstruction, acute coronary syndrome, pericarditis, ischemic bowel, irritable bowel disease, irritable bowel syndrome, appendicitis, diverticulitis, malignancy, hernia, urinary tract infection, torsion, [/ectopic (if female)], perforation, trauma, infectious. Patient is a 46-year-old female that presents the ER for right flank pain. She is rocking [id number] in bed. She notes that she recently had a stone which she passed. She was supposed to follow with urology on the of this month. Labs show a mild leukocytosis of 11.9 thousand. BMP along with LFTs, bilirubin and lipase was unremarkable. Beta hCG was negative. UA shows multiple white cells, epithelial cells and +1 bacteria. Straight cath was attempted as clean-catch was unsuccessful. Straight cath was no more beneficial. CT of the abdomen shows 7 mm obstructing stone in the distal ureter. Discussed with Maritza Diaz from urology and she recommended with that urine 3 days worth of Cipro and she will see the patient in the office tomorrow at 145. The UA is likely contaminated and not infected. Following this of Dilaudid and Toradol she felt significant better. She was discharged with OxyIR and Flomax to follow with urology tomorrow. Discussed with Pt concerning signs and symptoms to watch out for. Pt was instructed to follow up with their PCP and discussed with the patient their option to return to the ED at anytime for persistent or worsening symptoms. The appropriate anticipatory guidance and out-patient management, including indications for return to the emergency department, were explained at length to the patient and understood. Consults Time Called: 1330 Consulting Physician: Maritza FLORES - Urology [facility] Returned Call: [phone] At this time, I discussed the patient's case with Maritza FLORES and she agreed to follow-up with the patient in the morning. She recommended discharging patient on Cipro. Impression Primary Impression: Renal colic Scribe Attestation The scribe's documentation has been prepared under my direction and personally reviewed by me in its entirety. I confirm that the note above accurately reflects all work, treatment, procedures, and medical decision making performed by me. Departure Information Dispostion Home / Self-Care Prescriptions Ciprofloxacin Hcl (CIPRO) 500 Mg Tab 500 MG PO BID, #6 TAB Prov: Alex Hernandez, DO 11/23/16 Tamsulosin Hcl (FLOMAX) 0.4 Mg Cap 0.4 MG PO DAILY, #10 CAP Prov: Alex Hernandez, DO 11/23/16 Oxycodone Immediate Rel Tab (ROXICODONE IR) 5 Mg Tab 1-2 TAB PO Q4H Y for Severe Pain, #24 TAB Prov: Alex Hernandez, DO 11/23/16 Referrals No Doctor, Assigned (PCP) Forms HOME CARE DOCUMENTATION FORM, IMPORTANT VISIT INFORMATION Patient Instructions ED Stone Renal W Colic, My [facility] Additional Instructions Please follow up with your primary care doctor with in the next 24 hours. Any worsening of your symptoms, please return to the ED immediately. This includes fevers greater than 100.4, persistent nausea vomiting, worsening pain, shaking chills, or any other concerning signs or symptoms from your standpoint. You were given medications during this visit that will inhibit your ability to drive, operate machinery and work. Please do NOT drive, operate machinery or work for the next 12hrs. You were also given a prescription for a narcotic/oxy IR. While taking this medication you should also not drive, operate machinery and or work.
[2016-11-25] MEDS ORDERED: TAMS0.4C38 PO (11:18)
[2016-11-25] MEDS ORDERED: CIPR-255 PO (11:18)
[2016-11-25] MEDS ORDERED: OXYC1TAB3 PO (11:18)
[2016-11-27] MEDS ORDERED: OXYC-57 PO (10:44)
[2016-11-27] MEDS ORDERED: CIPR1TAB11 PO (11:17)
== END 2016-11-23 14:10 | disposition home or self-care (01) ==
LOC: C.EDB 10:07 → C.EDC 14:10
DX: N23 Unspecified renal colic (principal); Z83.3 Family history of diabetes mellitus; F17.200 Nicotine dependence, unspecified, uncomplicated; N13.2 Hydronephrosis with renal and ureteral calculous obstruction; K76.0 Fatty (change of) liver, not elsewhere classified

== ENCOUNTER → 2016-11-24 | Outpatient (CLI) | payer OTHER ==
[~2016-11-24] MED LIST changes: +CIPR-255 PO; +CIPR1TAB11 PO; +OXYC-57 PO; +OXYC1TAB3 PO; -PRED20TA PO; +TAMS0.4C38 PO
== END | disposition home or self-care (01) ==
LOC: C.LABSPEC 17:29
PROVIDERS: ATTEND Nurse Practitioner Adult Health
DX: N20.1 Calculus of ureter (principal); N20.0 Calculus of kidney

== ENCOUNTER → 2016-11-27 | Day surgery (SDC) | payer OTHER ==
[2016-11-25 11:18] VITALS: Ht 165.1 cm; Wt 118.4 kg
--- NOTE | 2016-11-25 11:32 | PAT Medication Instructions ---
Service Date Nov 25, 2016. Current Home Medication List Ciprofloxacin Hcl (Cipro), 500 MG PO BID Oxycodone Ir (Roxicodone Ir), 1-2 TAB PO Q4H PRN for Severe Pain Tamsulosin Hcl (Flomax), 0.4 MG PO QAM Medication Instructions For Your Scheduled Surgery - Take the following medications the morning of surgery with a sip of water OTHERWISE NOTHING TO EAT OR DRINK AFTER MIDNIGHT: Oxycodone Ir (Roxicodone Ir), 1-2 TAB PO Q4H PRN for Severe Pain (may take if needed up to 4 hours prior to surgery) Tamsulosin Hcl (Flomax), 0.4 MG PO QAM - Take the following medications as scheduled the night before surgery: Oxycodone Ir (Roxicodone Ir), 1-2 TAB PO Q4H PRN for Severe Pain If you have any questions please call us at [phone] or [phone] or [phone]
--- NOTE | 2016-11-25 12:34 | DIAGNOSTIC IMAGING REPORT ---
TWO VIEW CHEST CLINICAL HISTORY: Preoperative examination. FINDINGS: PA and lateral chest radiographs are compared to study dated 10/31/2016. The examination is degraded by large body habitus The cardiomediastinal silhouette is unremarkable. The lungs and pleural spaces are clear. There is no pneumothorax. The bony thorax appears intact. Cholecystectomy clips are seen in the right upper quadrant. IMPRESSION: No active disease in the chest. Electronically signed by: Steven Ortega M.D. 11/25/2016 12:32 PM Dictated Date/Time: 11/25/2016 12:31 PM
[~2016-11-27] VITALS: Ht 165.1 cm; Wt 118.4 kg
[~2016-11-27] MED LIST changes: +ATROPINE SULFATE 0.1 MG/ML 5ML SYR IV PRN; +CIPROFLOXACIN 400MG / D5W IV SCH; +DEXAMETHASONE SOD INJ 4 MG/ML VIAL IV PRN; +DEXAMETHASONE SOD INJ 4 MG/ML VIAL ONE; +EpHEDrine SULFATE INJ 50 MG/ML AMP IV PRN; +FENTANYL CITRATE INJ 50 MCG/1 ML 2 ML VIAL IV PRN; +FENTANYL CITRATE INJ 50 MCG/1 ML 2 ML VIAL ONE; +KETOROLAC TROMETHAMINE 30 MG/ML VIAL IV. PRN; +LABETALOL HCL IV 5 MG/ML 20ML IV PRN; +LACTATED RINGER'S 1000ML 1,000 ML IV SCH; +LIDOCAINE HCL 2% 2 ML VIAL (20MG/ML) ONE; +METOCLOPRAMIDE HCL INJ 5 MG/ML 2 ML VIAL IV PRN; +MIDAZOLAM HCL 1 MG/ML 2ML VIAL ONE; +MoRPHine SULFATE 10 MG/ML CARP/VIAL IV PRN; +ONDANSETRON INJ 2 MG/ML 2 ML VIAL IV PRN; +ONDANSETRON INJ 2 MG/ML 2 ML VIAL ONE; +PHENYLEPHRINE 100MCG/ML 5ML SYR IV PRN; +PROPOFOL IV EMULSION 10 MG/ML 20 ML VIAL IV ONE
--- NOTE | 2016-11-27 09:54 | History & Physical Bridge - SC ---
H&P Re-Evaluation Bridge Note: I have examined the patient, reviewed the History & Physical and in the interval since the performance of the History & Physical I have noted the following changes of clinical significance: No changes noted
--- NOTE | 2016-11-27 10:46 | Discharge Instructions-SurgCtr ---
Discharge Instructions Date of Service Nov 27, 2016. Visit Reason for Visit: Calculus,Kidney N20.0 Discharge Discharge Diagnosis / Problem: right ureteral stone Discharge Goals Goal(s): Decrease discomfort, Increase independence, Improve disease control Activity Recommendations Activity Limitations: resume your previous activity (no driving on narcotics) Anesthesia . Post Anesthesia Instructions: If you have had General Anesthesia or IV Sedation: * Do not drive today. * Resume driving when surgeon permits. * Do not make important decisions or sign legal documents today. * Call surgeon for: 1. Temperature elevations greater than 101 degrees F. 2. Uncontrollable pain. 3. Excessive bleeding. 4. Persistent nausea and vomiting. 5. Medication intolerance (nausea, vomiting or rash). * For nausea and vomiting use only clear liquids such as: tea, soda, bouillon until nausea subsides, then gradually increase diet as tolerated. * If you have any concerns or questions, call your surgeon's office. If physician is unavailable and it is an emergency, call 911 or go to the nearest emergency room. . Diet Recommendations Home Diet: resume previous diet Procedures Procedures Performed: Right Extracorporeal Shock Wave Lithotripsy - Ureteral Pending Studies Studies pending at discharge: no Medical Emergencies . Who to Call and When: Medical Emergencies: If at any time you feel your situation is an emergency, please call 911 immediately. . Non-Emergent Contact Non-Emergency issues call your: Urologist . . "Provider Documentation" section prepared by Vance Sandoval.
--- NOTE | 2016-11-27 11:30 | Anesthesia Progress Nt - [facility] ---
Anesthesia Post Op Note Date & Time Nov 27, 2016 at 11:30 Vital Signs Pain Intensity: 0 Vital Signs Past 12 Hours Date Time Temp Pulse Resp B/P Pulse Ox O2 Delivery O2 Flow Rate FiO2 11/27/16 11:27 36.3 66 16 148/86 98 Room Air 11/27/16 11:15 148/94 11/27/16 11:12 60 22 98 11/27/16 11:12 61 22 11/27/16 11:11 62 20 11/27/16 11:11 62 20 98 11/27/16 11:10 126/80 11/27/16 11:10 36.6 97 Room Air 11/27/16 11:07 62 20 11/27/16 11:07 61 20 96 11/27/16 11:06 59 16 11/27/16 11:06 60 16 97 11/27/16 11:05 124/74 11/27/16 11:01 65 18 96 11/27/16 11:01 63 18 11/27/16 11:00 125/78 11/27/16 10:58 59 16 97 11/27/16 10:58 62 16 11/27/16 10:55 135/82 11/27/16 10:53 57 17 100 11/27/16 10:53 58 17 11/27/16 10:50 135/91 11/27/16 10:48 36.6 57 14 146/93 100 Mask 6 11/27/16 10:48 57 4 11/27/16 10:48 57 4 146/93 100 11/27/16 07:59 36.5 83 22 127/68 95 Room Air Notes Mental Status: alert / awake / arousable, participated in evaluation Pt Amnestic to Procedure: Yes Nausea / Vomiting: adequately controlled Pain: adequately controlled Airway Patency, RR, SpO2: stable & adequate BP & HR: stable & adequate Hydration State: stable & adequate Anesthetic Complications: no major complications apparent
[2016-11-27 11:40] VITALS: BP 125/80; PULSE 57; TEMP 36.4; O2SAT 97
--- NOTE | 2016-11-27 11:47 | [facility] Post Operative Brief Note ---
Immediate Operative Summary Operative Date Nov 27, 2016. Pre-Operative Diagnosis Right Ureteral Calculi Post-Operative Diagnosis Same Procedure(s) Performed Right Extracorporeal Shock Wave Lithotripsy - Ureteral Surgeon Dr. Sandoval Product Trainer Surgeon(s) None Estimated Blood Loss 0 mL Findings R DISTAL STONE Specimens None
--- NOTE | 2016-11-27 12:44 | OPERATIVE REPORT ---
DATE OF OPERATION: 11/27/2016 PREOPERATIVE DIAGNOSIS: Right ureteral ESWL. HISTORY OF PRESENTATION: The patient is a 46-year-old female with a several week history of right flank pain and urethral irritation, bladder irritation who presents for ESWL. She did have a KUB where the stone is very difficult to see but had a CAT scan 4 days ago that showed the stone at the UVJ. Because of this and because I felt that the stone could be seen with careful review she was taken to the operating room for a trial run we could see the stone. She was then put to sleep after being given general anesthesia. She had Venodyne stockings on and had been given preoperative antibiotics and 3000 shocks, the majority at level 6 were administered. At the end of the procedure, the patient was transferred to the recovery room in stable condition. I attest to the content of the Intraoperative Record and any orders documented therein. Any exceptio ns are noted below.
== END | disposition home or self-care (01) ==
LOC: X.SURG 07:42
PROVIDERS: ATTEND Urology
DX: N20.1 Calculus of ureter (principal); R31.29 Other microscopic hematuria; K76.0 Fatty (change of) liver, not elsewhere classified; E78.5 Hyperlipidemia, unspecified; N39.0 Urinary tract infection, site not specified; K43.9 Ventral hernia without obstruction or gangrene; N76.0 Acute vaginitis

== ENCOUNTER → 2016-11-27 | Outpatient (CLI) | payer OTHER ==
[~2016-11-27] MED LIST changes: -ATROPINE SULFATE 0.1 MG/ML 5ML SYR IV PRN; -CIPROFLOXACIN 400MG / D5W IV SCH; -DEXAMETHASONE SOD INJ 4 MG/ML VIAL IV PRN; -DEXAMETHASONE SOD INJ 4 MG/ML VIAL ONE; -EpHEDrine SULFATE INJ 50 MG/ML AMP IV PRN; -FENTANYL CITRATE INJ 50 MCG/1 ML 2 ML VIAL IV PRN; -FENTANYL CITRATE INJ 50 MCG/1 ML 2 ML VIAL ONE; -KETOROLAC TROMETHAMINE 30 MG/ML VIAL IV. PRN; -LABETALOL HCL IV 5 MG/ML 20ML IV PRN; -LACTATED RINGER'S 1000ML 1,000 ML IV SCH; -LIDOCAINE HCL 2% 2 ML VIAL (20MG/ML) ONE; -METOCLOPRAMIDE HCL INJ 5 MG/ML 2 ML VIAL IV PRN; -MIDAZOLAM HCL 1 MG/ML 2ML VIAL ONE; -MoRPHine SULFATE 10 MG/ML CARP/VIAL IV PRN; -ONDANSETRON INJ 2 MG/ML 2 ML VIAL IV PRN; -ONDANSETRON INJ 2 MG/ML 2 ML VIAL ONE; -PHENYLEPHRINE 100MCG/ML 5ML SYR IV PRN; -PROPOFOL IV EMULSION 10 MG/ML 20 ML VIAL IV ONE
--- NOTE | 2016-11-27 07:42 | DIAGNOSTIC IMAGING REPORT ---
KUB CLINICAL HISTORY: Calculus, kidney nephrocalcinosis COMPARISON STUDY: 11/17/2016 FINDINGS: The soft tissues, psoas shadows, renal outlines and intestinal gas pattern appear normal. There is no evidence for bowel obstruction. No abnormal abdominal calcifications are seen. The distal right ureteral calculus seen on CT evaluation is not appreciated by plain film evaluation of the several pelvic vascular calcifications noted bilaterally. IMPRESSION: No evidence for nephrocalcinosis based on plain film criteria. Electronically signed by: Nikita Reese M.D. 11/27/2016 7:40 AM Dictated Date/Time: 11/27/2016 7:39 AM
== END | disposition home or self-care (01) ==
LOC: C.RAD 07:19
PROVIDERS: ATTEND Nurse Practitioner Adult Health
DX: N20.0 Calculus of kidney (principal)

== ENCOUNTER → 2016-12-07 | Outpatient (CLI) | payer OTHER ==
--- NOTE | 2016-12-07 09:30 | DIAGNOSTIC IMAGING REPORT ---
KUB CLINICAL HISTORY: Kidney calculus. COMPARISON STUDY: CT of the abdomen and pelvis November 23, 2016 and KUB November 27, 2016. FINDINGS: There are cholecystectomy clips. Bowel gas pattern is normal. Pelvic calcifications likely reflect phleboliths. The distal right ureteral calculus shown on prior CT of November 23, 2016 is not visualized. IMPRESSION: No urinary calculi identified. Electronically signed by: Leonidas Hennessy M.D. 12/07/2016 9:28 AM Dictated Date/Time: 12/07/2016 9:26 AM
== END | disposition home or self-care (01) ==
LOC: C.RAD 09:06
PROVIDERS: ATTEND Nurse Practitioner Adult Health
DX: N20.0 Calculus of kidney (principal)

== ENCOUNTER → 2017-06-04 | Outpatient (CLI) | payer OTHER ==
[~2017-06-04] MED LIST changes: -CIPR1TAB11 PO; -OXYC-57 PO
--- NOTE | 2017-06-04 10:10 | DIAGNOSTIC IMAGING REPORT ---
KUB HISTORY: Nephrolithiasis. COMPARISON: KUB 12/07/2016. FINDINGS: The bowel gas pattern is unremarkable. There are no dilated loops of small bowel to suggest an obstruction. No renal calculi. No ureteral calculi. Calcifications in the deep pelvis likely represent phleboliths. These remain stable. No pneumoperitoneum or pneumatosis. Cholecystectomy. The spleen remains enlarged measuring approximately 18 cm in length. IMPRESSION: No renal or ureteral stones. Persistence splenomegaly measuring 18 cm. Electronically signed by: Savage Joe M.D. 06/04/2017 10:09 AM Dictated Date/Time: 06/04/2017 10:07 AM
== END | disposition home or self-care (01) ==
LOC: C.RAD 09:37
PROVIDERS: ATTEND Nurse Practitioner Adult Health
DX: N20.0 Calculus of kidney (principal); R16.1 Splenomegaly, not elsewhere classified

== ENCOUNTER 2018-04-08 10:17 | Inpatient (IN) | payer OTHER ==
[~2018-04-08] VITALS: Ht 167.6 cm; Wt 122.0 kg
[~2018-04-08 10:17] MED LIST changes: +OXYC-90 PO; -OXYC1TAB3 PO
[2018-04-08] MEDS ORDERED: SODIUM CHLORIDE 0.9% 1000ML 1,000 ML IV STA (10:51)
[2018-04-08] MEDS ORDERED: ONDANSETRON INJ 2 MG/ML 2 ML VIAL IV STA (10:51)
[2018-04-08 11:00] LABS: BASO % 0.3 %; BASO ABS # 0.04 K/uL (0-0.2); EOS % 0.5 %; EOS ABS # 0.08 K/uL (0-0.5); HEMATOCRIT 48.5 % (37-47); HEMOGLOBIN 16.3 g/dL (12.0-16.0); IG# 0.07 K/uL (0.00-0.02); LYMPH ABS # 1.06 K/uL (1.2-3.4); MEAN CELL VOLUME 91.5 fL (80-100); MEAN CORPUSCULAR HEMOGLOBIN 30.8 pg (25-34); MEAN CORPUSCULAR HGB CONC 33.6 g/dl (32-36); MEAN PLATELET VOLUME 10.4 fL (7.4-10.4); MONO % 8.5 %; MONO ABS # 1.28 K/uL (0.11-0.59); NEUT % 83.2 %; NEUT ABS # 12.57 K/uL (1.4-6.5); PLATELET COUNT 218 K/uL (130-400); RED CELL DISTRIBUTION WIDTH CV 12.9 % (11.5-14.5)
[2018-04-08] MEDS: HYDROmorphone INJ 1 MG/ML SYR IV PRN ×2 (11:01→11:21)
[2018-04-08 11:28] LABS: ALKALINE PHOSPHATASE 819 U/L (45-117); ALT/SGPT 948 U/L (12-78); AST/SGOT 802 U/L (15-37); BLOOD UREA NITROGEN 8 mg/dl (7-18); CALCIUM 9.9 mg/dl (8.5-10.1); CARBON DIOXIDE 27 mmol/L (21-32); CREATININE 0.85 mg/dl (0.60-1.20); GLUCOSE 239 mg/dl (70-99); POTASSIUM 4.2 mmol/L (3.5-5.1); SODIUM 139 mmol/L (136-145); TOTAL PROTEIN 7.9 gm/dl (6.4-8.2)
[2018-04-08 11:47] LABS: LIPASE 53608 U/L (73-393)
--- NOTE | 2018-04-08 12:01 | DIAGNOSTIC IMAGING REPORT ---
CT OF THE ABDOMEN AND PELVIS WITHOUT CONTRAST, STONE PROTOCOL CLINICAL HISTORY: Right flank pain. COMPARISON STUDY: CT of the abdomen and pelvis November 23, 2016 and KUB June 04, 2017. TECHNIQUE: Helical axial images of the abdomen and pelvis were obtained without IV or oral contrast according to renal stone protocol. A dose lowering technique was utilized adhering to the principles of ALARA. FINDINGS: Lung bases are clear. No renal, ureteral or bladder calculi are present. There is no hydronephrosis or hydroureter. Evaluation of the remainder of the abdomen and pelvis is suboptimal on this unenhanced exam. There is probable fatty infiltration of the liver. No biliary ductal dilatation is identified status post cholecystectomy. There is mild peripancreatic infiltration, most pronounced along the pancreatic body. No pancreatic ductal dilatation is identified. The gland is otherwise unremarkable. Mild splenomegaly is noted. Adrenal glands are normal. There is no evidence for a bowel obstruction. There is no lymphadenopathy. No pelvic ascites is present. No suspicious osseous lesion is noted. IMPRESSION: 1. Mild peripancreatic infiltration consistent with acute pancreatitis. 2. No biliary ductal dilatation status post cholecystectomy. 3. No urinary calculi or hydronephrosis. 4. Probable fatty infiltration of liver. 5. Mild splenomegaly. Electronically signed by: Leonidas Hennessy M.D. 04/08/2018 12:00 PM Dictated Date/Time: 04/08/2018 11:53 AM
[2018-04-08] MEDS ORDERED: LACTATED RINGER'S 1000ML 1,000 ML IV STA (12:55)
[2018-04-08 14:05] VITALS: O2SAT 96; Ht 167.6 cm; Wt 122.0 kg
[2018-04-08] MEDS ORDERED: ZOLPIDEM TARTRATE 5 MG TAB PO PRN (14:45)
[2018-04-08] MEDS ORDERED: POLYETHYLENE (MIRALAX) 17 GM PACK PO PRN (14:45)
[2018-04-08] MEDS ORDERED: ONDANSETRON INJ 2 MG/ML 2 ML VIAL IV PRN (14:45)
[2018-04-08] MEDS ORDERED: ALUMINUM/MAGNESIUM/SIMETH (MAALOX MAX) 30 ML UDC PO PRN (14:45)
[2018-04-08] MEDS ORDERED: MAGNESIUM HYDROXIDE SUSP 30 ML UDC PO PRN (14:45)
--- NOTE | 2018-04-08 15:16 | History and Physical ---
History & Physical Date & Time of Service: Apr 08, 2018 at 14:30 Chief Complaint: Abdominal Pain Possible Kidney Stone Primary Care Physician: Ganga Pina M.D. History of Present Illness Source: patient, hospital records, other 47 y/o F without active medical issues. History of cholecystectomy 2012. Presents with acute upper abdominal pain, nausea and vomiting. Symptoms began AM of admission. She has not had fevers or diarrhea. Initial labs revealed a markedly elevated lipase and elevated LFTs consistent with obstruction. A CT abdomen demonstrated pancreatic inflammation without evidence of biliary obstruction and hyperglycemia. Past Medical/Surgical History 1) Cholecystitis - cholecystectomy 2012 2) Obese 3) Smoker 4) Nephrolithiasis Family History Diabetes mellitus Kidney stones Social History Smokes one pack daily, does not drink - employed driving school vans and also works at the [employer] Smoking Status: Current Some Day Smoker Drug Use: none Marital Status: Housing status: lives with family Occupational Status: employed Immunizations History of Influenza Vaccine: No History of Tetanus Vaccine?: No History of Pneumococcal: No History of Hepatitis B Vaccine: Unknown Allergies Coded Allergies: No Known Allergies (Unverified , 04/08/18) Home Medications No Active Prescriptions or Reported Meds Review of Systems Constitutional: No fever, No chills, No sweats Eyes: No worsening of vision ENT: No hearing loss, No unusual epistaxis, No nasal symptoms Respiratory: No cough, No sputum, No wheezing Cardiovascular: No chest pain Abdomen: + pain, + nausea, + vomiting, No diarrhea Musculoskeletal: No joint pain Genitourinary - Female: No dysuria, No urinary frequency, No urinary urgency Neurologic: No memory loss, No paralysis, No weakness Psychiatric: No depression symptoms Endocrine: No fatigue Integumentary: No rash Allergic / Immunologic: No environmental allergies Physical Exam Vital Signs Date Time Temp Pulse Resp B/P (MAP) Pulse Ox O2 Delivery O2 Flow Rate FiO2 04/08/18 14:05 96 Room Air 04/08/18 13:24 60 16 134/72 96 Room Air 04/08/18 11:22 75 18 95 Room Air 04/08/18 10:24 37.0 82 20 172/93 99 Room Air General Appearance: WD/WN, no apparent distress, + obese, + pertinent finding ( PLeasant, middle-aged F - no distress) Head: normocephalic Eyes: normal inspection ENT: normal ENT inspection, pharynx normal Neck: supple Respiratory/Chest: chest non-tender, lungs clear, normal breath sounds Cardiovascular: regular rate, rhythm, no edema, no gallop Abdomen/GI: + pertinent finding (No guarding or rebound - mild BL upper abdominal tenderness) Back: normal inspection, no CVA tenderness Extremities/Musculoskelatal: normal inspection, no calf tenderness 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, no motor/sensory deficits, alert, oriented x 3 Skin: normal color Diagnostics Laboratory Results Results Past 24 Hours Test 04/08/18 10:45 04/08/18 12:45 Range/Units White Blood Count 15.10 4.8-10.8 K/uL Red Blood Count 5.30 4.2-5.4 M/uL Hemoglobin 16.3 12.0-16.0 g/dL Hematocrit 48.5 37-47 % Mean Corpuscular Volume 91.5 80-100 fL Mean Corpuscular Hemoglobin 30.8 25-34 pg Mean Corpuscular Hemoglobin Concent 33.6 32-36 g/dl Platelet Count 218 130-400 K/uL Mean Platelet Volume 10.4 7.4-10.4 fL Neutrophils (%) (Auto) 83.2 % Lymphocytes (%) (Auto) 7.0 % Monocytes (%) (Auto) 8.5 % Eosinophils (%) (Auto) 0.5 % Basophils (%) (Auto) 0.3 % Neutrophils # (Auto) 12.57 1.4-6.5 K/uL Lymphocytes # (Auto) 1.06 1.2-3.4 K/uL Monocytes # (Auto) 1.28 0.11-0.59 K/uL Eosinophils # (Auto) 0.08 0-0.5 K/uL Basophils # (Auto) 0.04 0-0.2 K/uL RDW Standard Deviation 43.0 36.4-46.3 fL RDW Coefficient of Variation 12.9 11.5-14.5 % Immature Granulocyte % (Auto) 0.5 % Immature Granulocyte # (Auto) 0.07 0.00-0.02 K/uL Sodium Level 139 136-145 mmol/L Potassium Level 4.2 3.5-5.1 mmol/L Chloride Level 104 98-107 mmol/L Carbon Dioxide Level 27 21-32 mmol/L Anion Gap 8.0 3-11 mmol/L Blood Urea Nitrogen 8 7-18 mg/dl Creatinine 0.85 0.60-1.20 mg/dl Estimated GFR () 95.2 Estimated GFR (Non- 82.2 BUN/Creatinine Ratio 9.1 10-20 Random Glucose 239 70-99 mg/dl Calcium Level 9.9 8.5-10.1 mg/dl Total Bilirubin 2.1 0.2-1 mg/dl Direct Bilirubin 1.6 0-0.2 mg/dl Aspartate Amino Transf (AST/SGOT) 802 15-37 U/L Alanine Aminotransferase (ALT/SGPT) 948 12-78 U/L Alkaline Phosphatase 819 45-117 U/L Total Protein 7.9 6.4-8.2 gm/dl Albumin 4.0 3.4-5.0 gm/dl Lipase 63350 73-393 U/L Urine Color YELLOW Urine Appearance CLEAR CLEAR Urine pH 5.0 4.5-7.5 Urine Specific [place] 1.008 1.000-1.030 Urine Protein NEG NEG Urine Glucose (UA) NEG NEG Urine Ketones NEG NEG Urine Occult Blood NEG NEG Urine Nitrite NEG NEG Urine Bilirubin NEG NEG Urine Urobilinogen NEG NEG Urine Leukocyte Esterase NEG NEG Urine Test NEG NEG Diagnostic Radiology CT abdomen: 1. Mild peripancreatic infiltration consistent with acute pancreatitis. 2. No biliary ductal dilatation status post cholecystectomy. 3. No urinary calculi or hydronephrosis. 4. Probable fatty infiltration of liver. 5. Mild splenomegaly. Impression Assessment and Plan 47 y/o F without active medical issues. History of cholecystectomy 2012. Presents with acute upper abdominal pain, nausea and vomiting. Symptoms began AM of admission. She has not had fevers or diarrhea. Initial labs revealed a markedly elevated lipase and elevated LFTs consistent with obstruction. A CT abdomen demonstrated pancreatic inflammation without evidence of biliary obstruction. 1) Acute pancreatitis. Transaminitis. It may be that she passed a stone or that there is early obstruction. We will keep her NPO, provide IVF and consult GI. LFTs will be trended. 2) Hyperglycemia - may be due to pancreatitis - she is at risk of DM and we will check an A1C 3) Smoking cessation will be addressed Full code - Heparin prophylaxis Total time for this admit including review of labs, meds, records - discussion with pt and ER attending - 40 min Advanced Directives Existing Living Will: No Existing Power of Fabric Awning Repairer: No Resuscitation Status VTE Prophylaxis Will order VTE Prophylaxis: Yes
[2018-04-08 15:25] LABS: INR 0.9 (0.9-1.1)
[2018-04-08 16:26] VITALS: BP 129/77; PULSE 55; TEMP 36.7; O2SAT 96
[2018-04-08] MEDS: HEPARIN SOD 5000 UNIT/0.5 ML CARP SQ SCH ×2 (17:00→23:43)
[2018-04-08] MEDS: LACTATED RINGER'S 1000ML 1,000 ML IV SCH ×2 (17:15→23:43)
--- NOTE | 2018-04-08 17:32 | EMERGENCY ROOM VISIT NOTE ---
History Report prepared by Elaine: Rose Wheeler Under the Supervision of: Dr. Feliciano Salvador M.D. First contact with patient: 10:39 Chief Complaint: ABDOMINAL PAIN Stated Complaint: ABDOMINAL PAIN POSSIBLE KIDNEY STONE History of Present Illness The patient is a 47 year old female who presents to the Emergency Room with complaints of constant abdominal pain that onset at 0630 today. She notes that she fell down and threw up twice this morning from dizziness. She states that she tried to take Pepto Bismol this morning but threw it up. The patient notes that she did not have a bowel movement yesterday, which is uncommon for her. The patient notes that the pain is localized "above her belly button". She rates the pain a 10/10 in severity. The patient complains of abdominal pain, back pain, dizziness, and vomiting. Pt denies LOC, headache, fevers, chills, diaphoresis, visual changes, neck pain, chest pain, breathing difficulties, nausea, vomiting, abdominal pain, back pain, melena, hematochezia, urinary symptoms, numbness, weakness, lymphadenopathy, rash, or other complaints. The patient notes that she has a history of kidney stones, pneumonia, UTI, a partial hysterectomy, hernial repair, cholecystomy, and caesarian section. Source of History: patient Onset: 0630 today Position: abdomen Symptom Intensity: 10/10 in severity Timing: constant Associated Symptoms: + vomiting, + abdominal pain, + back pain Note: The patient complains of dizziness. Review of Systems See HPI for pertinent positives and negatives. A total of ten systems were reviewed and were otherwise negative. Past Medical & Surgical Medical Problems: (1) Acute pancreatitis (2) delivery delivered (3) Kidney stone (4) PNA (pneumonia) (5) Pneumonia (6) Renal colic (7) UTI (lower urinary tract infection) (8) UTI (urinary tract infection) Surgical Problems: (1) H/O hernia repair (2) History of partial hysterectomy (3) S/P cholecystectomy (4) S/P hernia repair (5) S/P hysterectomy Family History Diabetes mellitus Kidney stones Social History Smoking Status: Never Smoker Drug Use: none Marital Status: Occupation Status: employed Current/Historical Medications No Active Prescriptions or Reported Meds Allergies Coded Allergies: No Known Allergies (Unverified , 04/08/18) Physical Exam Vital Signs Date Time Temp Pulse Resp B/P (MAP) Pulse Ox O2 Delivery O2 Flow Rate FiO2 04/08/18 14:05 96 Room Air 04/08/18 13:24 60 16 134/72 96 Room Air 04/08/18 11:22 75 18 95 Room Air 04/08/18 10:24 37.0 82 20 172/93 99 Room Air Physical Exam GENERAL: Awake, alert, uncomfortable, in moderate distress. HENT: Normocephalic, atraumatic. Oropharynx unremarkable. EYES: Normal conjunctiva. Sclera non-icteric. NECK: Supple. No nuchal rigidity. FROM. No masses. RESPIRATORY: Clear to auscultation. No wheezes. No rales. Normal respiratory effort. CARDIAC: Normal rate. Normal rhythm. No murmurs. No rubs. Extremities warm and well perfused. Pulses equal. No JVD. GI: Soft, non-distended. General abdominal pain, worse in the epigastric region. No rebound or guarding. No masses. RECTAL: Deferred. MUSCULOSKELETAL: Atraumatic. Chest examination reveals CVA tenderness. The back is symmetrical on inspection without obvious abnormality. There is no CVA tenderness to palpation. No joint edema. LOWER EXTREMITIES: Calves are equal size bilaterally and non-tender. No edema. No discoloration. NEURO: Normal sensorium. No sensory or motor deficits noted. SKIN: No rash or jaundice noted. Medical Decision & Procedures ER Provider Diagnostic Interpretation: Radiology results as stated below per my review and radiologist interpretation: CT OF THE ABDOMEN AND PELVIS WITHOUT CONTRAST, STONE PROTOCOL CLINICAL HISTORY: Right flank pain. COMPARISON STUDY: CT of the abdomen and pelvis November 23, 2016 and [facility] June 04, 2017. TECHNIQUE: Helical axial images of the abdomen and pelvis were obtained without IV or oral contrast according to renal stone protocol. A dose lowering technique was utilized adhering to the principles of ALARA. FINDINGS: Lung bases are clear. No renal, ureteral or bladder calculi are present. There is no hydronephrosis or hydroureter. Evaluation of the remainder of the abdomen and pelvis is suboptimal on this unenhanced exam. There is probable fatty infiltration of the liver. No biliary ductal dilatation is identified status post cholecystectomy. There is mild peripancreatic infiltration, most pronounced along the pancreatic body. No pancreatic ductal dilatation is identified. The gland is otherwise unremarkable. Mild splenomegaly is noted. Adrenal glands are normal. There is no evidence for a bowel obstruction. There is no lymphadenopathy. No pelvic ascites is present. No suspicious osseous lesion is noted. IMPRESSION: 1. Mild peripancreatic infiltration consistent with acute pancreatitis. 2. No biliary ductal dilatation status post cholecystectomy. 3. No urinary calculi or hydronephrosis. 4. Probable fatty infiltration of liver. 5. Mild splenomegaly. Electronically signed by: Leonidas Hennessy M.D. 04/08/2018 12:00 PM Dictated Date/Time: 04/08/2018 11:53 AM Laboratory Results 04/08/18 10:45 Red Blood Count 5.30, Mean Corpuscular Volume 91.5, Mean Corpuscular Hemoglobin 30.8, Mean Corpuscular Hemoglobin Concent 33.6, Mean Platelet Volume 10.4, Neutrophils (%) (Auto) 83.2, Lymphocytes (%) (Auto) 7.0, Monocytes (%) (Auto) 8.5, Eosinophils (%) (Auto) 0.5, Basophils (%) (Auto) 0.3, Neutrophils # (Auto) 12.57, Lymphocytes # (Auto) 1.06, Monocytes # (Auto) 1.28, Eosinophils # (Auto) 0.08, Basophils # (Auto) 0.04 04/08/18 10:45 Test 04/08/18 10:45 04/08/18 12:45 White Blood Count 15.10 K/uL (4.8-10.8) Red Blood Count 5.30 M/uL (4.2-5.4) Hemoglobin 16.3 g/dL (12.0-16.0) Hematocrit 48.5 % (37-47) Mean Corpuscular Volume 91.5 fL (80-100) Mean Corpuscular Hemoglobin 30.8 pg (25-34) Mean Corpuscular Hemoglobin Concent 33.6 g/dl (32-36) Platelet Count 218 K/uL (130-400) Mean Platelet Volume 10.4 fL (7.4-10.4) Neutrophils (%) (Auto) 83.2 % Lymphocytes (%) (Auto) 7.0 % Monocytes (%) (Auto) 8.5 % Eosinophils (%) (Auto) 0.5 % Basophils (%) (Auto) 0.3 % Neutrophils # (Auto) 12.57 K/uL (1.4-6.5) Lymphocytes # (Auto) 1.06 K/uL (1.2-3.4) Monocytes # (Auto) 1.28 K/uL (0.11-0.59) Eosinophils # (Auto) 0.08 K/uL (0-0.5) Basophils # (Auto) 0.04 K/uL (0-0.2) RDW Standard Deviation 43.0 fL (36.4-46.3) RDW Coefficient of Variation 12.9 % (11.5-14.5) Immature Granulocyte % (Auto) 0.5 % Immature Granulocyte # (Auto) 0.07 K/uL (0.00-0.02) Prothrombin Time 9.7 SECONDS (9.0-12.0) Prothromb Time International Ratio 0.9 (0.9-1.1) Anion Gap 8.0 mmol/L (3-11) Estimated GFR () 95.2 Estimated GFR (Non- 82.2 BUN/Creatinine Ratio 9.1 (10-20) Calcium Level 9.9 mg/dl (8.5-10.1) Total Bilirubin 2.1 mg/dl (0.2-1) Direct Bilirubin 1.6 mg/dl (0-0.2) Aspartate Amino Transf (AST/SGOT) 802 U/L (15-37) Alanine Aminotransferase (ALT/SGPT) 948 U/L (12-78) Alkaline Phosphatase 819 U/L (45-117) Total Protein 7.9 gm/dl (6.4-8.2) Albumin 4.0 gm/dl (3.4-5.0) Lipase 25413 U/L (73-393) Urine Color YELLOW Urine Appearance CLEAR (CLEAR) Urine pH 5.0 (4.5-7.5) Urine Specific [place] 1.008 (1.000-1.030) Urine Protein NEG (NEG) Urine Glucose (UA) NEG (NEG) Urine Ketones NEG (NEG) Urine Occult Blood NEG (NEG) Urine Nitrite NEG (NEG) Urine Bilirubin NEG (NEG) Urine Urobilinogen NEG (NEG) Urine Leukocyte Esterase NEG (NEG) Urine Test NEG (NEG) Laboratory results reviewed by me Medications Administered Medications (Trade) Dose Ordered Sig/Guillermina Route Start Time Stop Time Status Last Admin Dose Admin Ondansetron HCl (Zofran Inj) 4 mg NOW STAT IV 04/08/18 10:51 04/08/18 10:52 DC 04/08/18 11:01 4 MG Hydromorphone HCl (Dilaudid Inj) 1 mg Q15M PRN IV 04/08/18 11:00 04/22/18 10:59 04/08/18 11:21 1 MG Sodium Chloride 1,000 ml @ 999 mls/hr Q1H1M STAT IV 04/08/18 10:51 04/08/18 11:51 DC 04/08/18 11:01 999 MLS/HR Lactated Ringer's 1,000 ml @ 200 mls/hr Q5H STAT IV 04/08/18 12:55 04/08/18 16:42 DC 04/08/18 13:45 200 MLS/HR ED Course 1050: The patient was evaluated in room B8. A complete history and physical exam was performed. 1051: Ordered Sodium Chloride 1000 ml @ 999 mls/hr IV, Zofran Inj 4 mg IV, Dilaudid Inj 1mg IV. 1100: Ordered Dilaudid Inj 1 mg IV. 1255: Ordered Lactated Ringer's 1,000 ml @ 200 mls/hr IV. 1334: Upon reexamination, the patient was feeling better. She is going to CT. I discussed the test results and treatment plan with her. The patient will be evaluated for further management. 1331: Discussed the patient's case with Dr. Ben Alford- Hospitalist [facility]. The patient will be evaluated for further treatment and disposition. . Medical Decision Prior records/ancillary studies reviewed. Triage Nursing notes reviewed and agree them. Additional history obtained from family. The patient's history was concerning for abdominal pain. Differential diagnosis: Etiologies such as appendicitis, diverticulitis, PUD, biliary pathology, UTI, pancreatitis, obstruction, mesenteric ischemia, aortic pathology, infections, inflammatory bowel disease, renal colic, as well as others were entertained. Physical examination findings: As above. ER treatment provided: IV Dilaudid 2 IV Zofran IV normal saline On reassessment the patient felt better. IV LR Diagnostics interpreted by me: The labs revealed an unremarkable CBC and chemistry panel. The patient's LFTs are elevated as well as her lipase concerning for acute pancreatitis and possible obstructive process. Imaging studies: CT scan as above Consultation: A consultation was placed with the hospitalist. The case was discussed and diagnostics were reviewed. The patient was evaluated in the ER for further treatment. Medication Reconcilliation Current Medication List: was personally reviewed by me Blood Pressure Screening Patient's blood pressure: Normal blood pressure Consults Time Called: 1330 Consulting Physician: Dr. Ben Alford[facility] Returned Call: [phone]: Discussed the patient's case with Dr. Ben Alford- Hospitalist [facility]. The patient will be evaluated for further treatment and disposition. Impression Primary Impression: Pancreatitis Additional Impression: Elevated LFTs Scribe Attestation The scribe's documentation has been prepared under my direction and personally reviewed by me in its entirety. I confirm that the note above accurately reflects all work, treatment, procedures, and medical decision making performed by me. Departure Information Dispostion Being Evaluated By Hospitalist Prescriptions No Active Prescriptions or Reported Meds Referrals Ganga Pina M.D. (PCP) Patient Instructions [facility] Problem Qualifiers
[2018-04-08] MEDS: HYDROmorphone INJ 0.5 MG/0.5 ML SYR IV PRN (17:47)
--- NOTE | 2018-04-08 20:49 | GASTROINTESTINAL CONSULTATION ---
DATE OF CONSULTATION: 04/08/2018 CHIEF COMPLAINT: Presumed gallstone pancreatitis. HISTORY OF PRESENT ILLNESS: Mrs. Pope is a 47-year-old white female who has no significant past medical history and was in her usual health until approximately 6:00 this morning when she developed intense upper abdominal pain for which she took a small dose of Pepto-Bismol. The pain stayed in the upper abdomen both across the right and left and epigastric regions but did not radiate to the back. There was no fever or chills. The pain continued and she presented to the Emergency Room. She was at the [employer] and has not had any prior attacks of pancreatitis to her knowledge. She did have a cholecystectomy in 2012 at [facility] and since that time she was having trouble with diarrhea, but does not recall any treatment with colestipol or other bile salt sequestrants. On admission, CT scan suggests no evidence for ductal dilation; however, there is evidence of a fatty appearance to the liver, mild splenomegaly, and mild peripancreatic infiltration consistent with acute pancreatitis. PAST MEDICAL HISTORY: Includes tobacco use, recurrent kidney stones, obesity, and history of cholecystitis with cholecystectomy in 2012. SOCIAL HISTORY: The patient is with children, currently smokes but does not use any alcoholic beverages. ALLERGIES: She has no known drug allergies and takes no prescription [id number] medications. REVIEW OF SYSTEMS: Otherwise noncontributory based on 13-point exam except for mentioned above. There has been no recent change in stool or urine color, fevers, chills, rigors, nausea, vomiting, hematemesis, coffee-ground emesis, melena or bright red blood per rectum. PHYSICAL EXAMINATION: VITAL SIGNS: On admission, blood pressure 172/93, pulse 82, respirations 20, 37.0 temperature, and 99% on room air. GENERAL: The patient is awake, alert and oriented x3, accompanied by a family member. EYES: Sclerae are anicteric. HEAD: Normocephalic, atraumatic. NECK: Normal range of motion. HEART: Normal S1, S2. LUNGS: Clear to auscultation without rales, rhonchi or wheezes. ABDOMEN: Soft, obese, tender with mild palpation across the upper abdomen. Below the umbilicus, there is less discomfort. The bowel sounds, although present, are markedly diminished. There is no evidence for rebound. EXTREMITIES: Without clubbing, cyanosis or edema. SKIN: Warm, dry and intact. NEUROLOGIC: There are no focal neurologic deficits. LABORATORY STUDIES: Blood count on admission, white count 15.1, hemoglobin 16.3, MCV 91, platelets 218,000. The patient's BUN and creatinine are 8 and 0.85 on admission, potassium 4.2, bicarbonate is 27, total bilirubin is 2.1. Serum calcium is 9.9, direct bilirubin 1.6, AST 802, ALT 948, alkaline phosphatase 819, total protein 7.9, albumin 4.0, lipase is 53,608. UA is unremarkable. CURRENT MEDICATIONS: Include lactated Ringer's at 200 mL an hour, Maalox p.r.n., Ambien, Zofran as needed, hydromorphone as needed. IMPRESSION AND PLAN: The patient with evidence of what appears to be gallstone pancreatitis status post cholecystectomy in 2012. No prior history of pancreatitis noted by the patient and she has never experienced an attack of this nature in the past, although she has experienced kidney stones which are different by her description. Would continue hydration with lactated Ringer's. Follow labs including LFTs, pancreatic enzymes, CBC and avoid hemoconcentration. Would keep patient n.p.o. except for either moistening the mouth or just scant amount of ice chips and maintain pain control as you were doing. I did explain that the possibility of retained stone is still present and it may be early to rely on the CT scan for ductal dilation. If possible an MRCP this evening or early tomorrow would be helpful, particularly if there is no change in her liver panel or if they are worsening to exclude a persistent obstruction. Would follow LFTs and pancreatic enzymes. The patient may cautiously ambulate with assistance. Maintain good urine output. If it appears that there are retained stones and that LFTs are not reducing, then ERCP may be necessary. Dr. Granado will be covering this weekend and is aware of the patient's status. [facility] CENTERJohann
--- NOTE | 2018-04-08 21:25 | DIAGNOSTIC IMAGING REPORT ---
MRCP HISTORY: 47 years-old Female obstructive jaundice, gallstone pancreatitis acute upper abdominal pain with jaundice. Prior cholecystectomy. COMPARISON: CT abdomen and pelvis of same day and also 11/23/2016 TECHNIQUE: MRCP without the use of IV contrast was obtained according to institutional protocol. FINDINGS: Surgically absent gallbladder. Common bile duct is normal, 5 mm. No intrahepatic biliary ductal dilation. No filling defects within the biliary tree. Pancreatic duct is unremarkable. No evidence of divisum. Spleen is mildly enlarged measuring 15.4 cm. Mild peripancreatic edema is redemonstrated, most pronounced about the pancreatic body. There is a new apparent fluid also noted about the gastrohepatic distribution without correlate seen on the comparison CT images measuring 5.3 x 4.6 x 5.6 cm, image 11 series 6 and image 10 series 5. IMPRESSION: 1. Findings compatible with acute pancreatitis with interval development of an apparent acute pancreatic fluid collection about the gastrohepatic distribution. 2. Prior cholecystectomy. No biliary ductal dilation or evidence of choledocholithiasis. 3. Splenomegaly. The above report was generated using voice recognition software. It may contain grammatical, syntax or spelling errors. Electronically signed by: Sj Crystal M.D. 04/08/2018 9:24 PM Dictated Date/Time: 04/08/2018 8:16 PM
[2018-04-09 00:04] VITALS: BP 119/68; PULSE 67; TEMP 36.7; O2SAT 93
[2018-04-09] MEDS: LACTATED RINGER'S 1000ML 1,000 ML IV SCH ×3 (04:45→22:37)
[2018-04-09] MEDS: HYDROmorphone INJ 0.5 MG/0.5 ML SYR IV PRN (04:46)
[2018-04-09 06:34] LABS: HEMOGLOBIN A1C 6.7 % (4.5-5.6)
[2018-04-09 07:19] LABS: CALCIUM 8.7 mg/dl (8.5-10.1); CREATININE 0.64 mg/dl (0.60-1.20); POTASSIUM 3.9 mmol/L (3.5-5.1); TOTAL PROTEIN 6.3 gm/dl (6.4-8.2)
[2018-04-09 07:24] VITALS: BP 129/79; PULSE 61; TEMP 36.6; O2SAT 95
--- NOTE | 2018-04-09 08:10 | Progress Note ---
Subjective Date of Service: Apr 09, 2018. Subjective pt feels much improved she has less abdominal pain, she spent 30 minutes counseling from 1135 to 1205 about diabetes and smoking cessation, this was in addition to the normal visit Problem List Medical Problems: (1) Elevated LFTs Status: Acute (2) Kidney stone Status: Acute (3) Pancreatitis Status: Acute (4) Pneumonia Status: Acute (5) Renal colic Status: Acute Review of Systems Constitutional: No fever, No chills, No weakness, No fatigue Cardiac: No chest pain, No PND, No edema Abdomen: + pain, No nausea, No vomiting Female : No dysuria, No hematuria Neurologic: No memory loss, No weakness Psychiatric: No depression symptoms, No anxiety Objective Vital Signs Date Time Temp Pulse Resp B/P (MAP) Pulse Ox O2 Delivery O2 Flow Rate FiO2 04/09/18 07:24 36.6 61 16 129/79 (96) 95 Room Air 04/09/18 00:04 36.7 67 20 119/68 (85) 93 Room Air 04/09/18 00:00 Room Air 04/08/18 16:35 Room Air 04/08/18 16:26 36.7 55 18 129/77 (94) 96 Room Air 04/08/18 15:58 59 16 121/69 95 04/08/18 14:05 96 Room Air 04/08/18 13:24 60 16 134/72 96 Room Air 04/08/18 11:22 75 18 95 Room Air 04/08/18 10:24 37.0 82 20 172/93 99 Room Air Physical Exam General Appearance: WD/WN, + mild distress Eyes: normal inspection, sclerae normal Neck: supple, no JVD Respiratory/Chest: chest non-tender, lungs clear Cardiovascular: regular rate, rhythm, no murmur Abdomen: normal bowel sounds, soft, + tenderness Extremities: no pedal edema, no calf tenderness Neurologic/Psychiatric: alert, oriented x 3 Laboratory Results Last 24 Hours Test 04/08/18 10:45 04/08/18 12:45 04/09/18 06:31 White Blood Count 15.10 K/uL Red Blood Count 5.30 M/uL Hemoglobin 16.3 g/dL Hematocrit 48.5 % Mean Corpuscular Volume 91.5 fL Mean Corpuscular Hemoglobin 30.8 pg Mean Corpuscular Hemoglobin Concent 33.6 g/dl Platelet Count 218 K/uL Mean Platelet Volume 10.4 fL Neutrophils (%) (Auto) 83.2 % Lymphocytes (%) (Auto) 7.0 % Monocytes (%) (Auto) 8.5 % Eosinophils (%) (Auto) 0.5 % Basophils (%) (Auto) 0.3 % Neutrophils # (Auto) 12.57 K/uL Lymphocytes # (Auto) 1.06 K/uL Monocytes # (Auto) 1.28 K/uL Eosinophils # (Auto) 0.08 K/uL Basophils # (Auto) 0.04 K/uL RDW Standard Deviation 43.0 fL RDW Coefficient of Variation 12.9 % Immature Granulocyte % (Auto) 0.5 % Immature Granulocyte # (Auto) 0.07 K/uL Prothrombin Time 9.7 SECONDS Prothromb Time International Ratio 0.9 Sodium Level 139 mmol/L 141 mmol/L Potassium Level 4.2 mmol/L 3.9 mmol/L Chloride Level 104 mmol/L 105 mmol/L Carbon Dioxide Level 27 mmol/L 29 mmol/L Anion Gap 8.0 mmol/L 7.0 mmol/L Blood Urea Nitrogen 8 mg/dl 8 mg/dl Creatinine 0.85 mg/dl 0.64 mg/dl Estimated GFR () 95.2 124.0 Estimated GFR (Non- 82.2 107.0 BUN/Creatinine Ratio 9.1 11.9 Random Glucose 239 mg/dl 158 mg/dl Estimated Average Glucose 146 mg/dl Hemoglobin A1c 6.7 % Calcium Level 9.9 mg/dl 8.7 mg/dl Total Bilirubin 2.1 mg/dl 0.5 mg/dl Direct Bilirubin 1.6 mg/dl 0.2 mg/dl Aspartate Amino Transf (AST/SGOT) 802 U/L 183 U/L Alanine Aminotransferase (ALT/SGPT) 948 U/L 555 U/L Alkaline Phosphatase 819 U/L 578 U/L Total Protein 7.9 gm/dl 6.3 gm/dl Albumin 4.0 gm/dl 3.0 gm/dl Lipase 80357 U/L Urine Color YELLOW Urine Appearance CLEAR Urine pH 5.0 Urine Specific [place] 1.008 Urine Protein NEG Urine Glucose (UA) NEG Urine Ketones NEG Urine Occult Blood NEG Urine Nitrite NEG Urine Bilirubin NEG Urine Urobilinogen NEG Urine Leukocyte Esterase NEG Urine Test NEG Est Creatinine Clear Calc Drug Dose 146.3 ml/min Magnesium Level 2.0 mg/dl Assessment and Plan 47 y/o F without active medical issues. History of cholecystectomy 2012. Presented with acute upper abdominal pain, nausea and vomiting. Symptoms began AM of admission. She has not had fevers or diarrhea. Initial labs revealed a markedly elevated lipase and elevated LFTs consistent with obstruction. A CT abdomen demonstrated pancreatic inflammation without evidence of biliary obstruction. subsequent labs show improvement suggestive of passed stone Acute pancreatitis. likely passed a stone marked improvement it lipase, will start clear diabetic diet Hepatitis, secondary to obstruction, also improving Hyperglycemia - may be due to pancreatitis - she is at risk of DM she does have an elevated A1C Smoking cessation counselling I spent _30 minutes in direct prolongued care with this patient. Start time__1135 stop time_1205 _ Full code - Heparin prophylaxis
[2018-04-09 08:20] LABS: HEMATOCRIT 40.3 % (37-47); HEMOGLOBIN 13.2 g/dL (12.0-16.0); MEAN CELL VOLUME 92.9 fL (80-100); MEAN CORPUSCULAR HEMOGLOBIN 30.4 pg (25-34); MEAN CORPUSCULAR HGB CONC 32.8 g/dl (32-36); MEAN PLATELET VOLUME 10.3 fL (7.4-10.4); PLATELET COUNT 162 K/uL (130-400); RED CELL DISTRIBUTION WIDTH SD 44.3 fL (36.4-46.3); WHITE BLOOD COUNT 8.75 K/uL (4.8-10.8)
[2018-04-09] MEDS: HEPARIN SOD 5000 UNIT/0.5 ML CARP SQ SCH ×2 (09:30→17:00)
--- NOTE | 2018-04-09 13:29 | Gastroenterology Progress Note ---
Progress Note Date of Service: Apr 09, 2018 Subjective Pt evaluation today including: conversation w/ patient, physical exam, chart review, lab review, review of studies, review of inpatient medication list cc f/u abd pain HPI Pt states no abd pain at present and took last pain med early this am. She tolerated clear liquid lunch. Review of Systems Respiratory: No shortness of breath Cardiac: No chest pain Medications Current Inpatient Medications Medications (Trade) Dose Ordered Sig/Guillermina Route Start Time Stop Time Status Last Admin Dose Admin Heparin Sodium (Porcine) (Heparin Sq 5000 Unit/0.5ml) 5,000 unit Q8H SQ 04/08/18 17:00 05/08/18 16:59 Acetaminophen (Tylenol Tab) 650 mg Q4H PRN PO 04/08/18 14:45 05/08/18 14:44 Al Hydrox/Mg Hydrox/Simethicone (Maalox Max Susp) 15 ml Q4H PRN PO 04/08/18 14:45 05/08/18 14:44 Magnesium Hydroxide (Milk Of Magnesia Susp) 30 ml Q6H PRN PO 04/08/18 14:45 05/08/18 14:44 Polyethylene (Miralax Powder Packet) 17 gm DAILY PRN PO 04/08/18 14:45 05/08/18 14:44 Zolpidem Tartrate (Ambien Tab) 5 mg HSZ PRN PO 04/08/18 14:45 05/08/18 14:44 Ondansetron HCl (Zofran Inj) 4 mg Q6H PRN IV 04/08/18 14:45 05/08/18 14:44 04/08/18 20:55 4 MG Hydromorphone HCl (Dilaudid Inj) 0.5 mg Q3H PRN IV 04/08/18 14:45 04/22/18 14:44 04/09/18 04:46 0.5 MG Insulin Aspart (novoLOG ASPART) SLIDING SCALE PARAMETER ACHS SC 04/09/18 16:30 05/09/18 16:29 Lactated Ringer's 1,000 ml @ 100 mls/hr Q10H IV 04/09/18 12:15 05/09/18 12:14 04/09/18 12:15 100 MLS/HR Objective Vital Signs Date Time Temp Pulse Resp B/P (MAP) Pulse Ox O2 Delivery O2 Flow Rate FiO2 04/09/18 08:00 Room Air 04/09/18 07:24 36.6 61 16 129/79 (96) 95 Room Air 04/09/18 00:04 36.7 67 20 119/68 (85) 93 Room Air 04/09/18 00:00 Room Air 04/08/18 16:35 Room Air 04/08/18 16:26 36.7 55 18 129/77 (94) 96 Room Air 04/08/18 15:58 59 16 121/69 95 04/08/18 14:05 96 Room Air Physical Exam General Appearance: WD/WN, no apparent distress Respiratory/Chest: lungs clear, no respiratory distress Cardiovascular: regular rate, rhythm Abdomen: normal bowel sounds, non tender, soft Skin: normal color, no jaundice Laboratory Results Last 24 Hours Test 04/09/18 06:31 04/09/18 11:55 White Blood Count 8.75 K/uL Red Blood Count 4.34 M/uL Hemoglobin 13.2 g/dL Hematocrit 40.3 % Mean Corpuscular Volume 92.9 fL Mean Corpuscular Hemoglobin 30.4 pg Mean Corpuscular Hemoglobin Concent 32.8 g/dl RDW Standard Deviation 44.3 fL RDW Coefficient of Variation 13.0 % Platelet Count 162 K/uL Mean Platelet Volume 10.3 fL Sodium Level 141 mmol/L Potassium Level 3.9 mmol/L Chloride Level 105 mmol/L Carbon Dioxide Level 29 mmol/L Anion Gap 7.0 mmol/L Blood Urea Nitrogen 8 mg/dl Creatinine 0.64 mg/dl Est Creatinine Clear Calc Drug Dose 146.3 ml/min Estimated GFR () 124.0 Estimated GFR (Non- 107.0 BUN/Creatinine Ratio 11.9 Random Glucose 158 mg/dl Calcium Level 8.7 mg/dl Magnesium Level 2.0 mg/dl Total Bilirubin 0.5 mg/dl Direct Bilirubin 0.2 mg/dl Aspartate Amino Transf (AST/SGOT) 183 U/L Alanine Aminotransferase (ALT/SGPT) 555 U/L Alkaline Phosphatase 578 U/L Total Protein 6.3 gm/dl Albumin 3.0 gm/dl Lipase 2322 U/L Bedside Glucose 169 mg/dl Assessment and Plan pancreatitis--clinically and by lipase value improved. Continue clears today and if feels good in am can try low fat diet, suspect gallstone passed causing this. Called nurse at 0832 and no urine output recorded. Hat placed in toliet at that time but patient was not able to collect a couple of times per her report. She does report light almost clear urine output indicating adequate IVF to prevent worsening of pancreatitis. Will check triglycerides for completeness. elevated LFTs--improved, MRCP negative for bile duct pathology but suspect she passed a stone--follow epigastric pain--from pancreatisi--improved.
[2018-04-09 15:19] VITALS: BP 155/83; PULSE 68; TEMP 36; O2SAT 93
[2018-04-09 16:00] VITALS: O2SAT 93
[2018-04-09] MEDS: ACETAMINOPHEN 325 MG TAB PO PRN ×2 (16:11→22:37)
[2018-04-09] MEDS: INSULIN ASPART 100 UNITS/ML 3 ML PEN SC SCH ×2 (16:30→20:54)
[2018-04-09 23:06] VITALS: BP 158/96; PULSE 67; TEMP 36.9; O2SAT 97
[2018-04-10] MEDS: HEPARIN SOD 5000 UNIT/0.5 ML CARP SQ SCH ×2 (00:41→08:13)
[2018-04-10 05:59] LABS: BASO % 0.3 %; BASO ABS # 0.03 K/uL (0-0.2); EOS % 1.2 %; EOS ABS # 0.11 K/uL (0-0.5); HEMATOCRIT 42.4 % (37-47); HEMOGLOBIN 14.3 g/dL (12.0-16.0); IG# 0.07 K/uL (0.00-0.02); LYMPH % 18.9 %; LYMPH ABS # 1.68 K/uL (1.2-3.4); MEAN CELL VOLUME 91.6 fL (80-100); MEAN CORPUSCULAR HEMOGLOBIN 30.9 pg (25-34); MEAN CORPUSCULAR HGB CONC 33.7 g/dl (32-36); MEAN PLATELET VOLUME 10.2 fL (7.4-10.4); MONO % 6.9 %; MONO ABS # 0.61 K/uL (0.11-0.59); NEUT % 71.9 %; NEUT ABS # 6.38 K/uL (1.4-6.5); PLATELET COUNT 157 K/uL (130-400); RED CELL DISTRIBUTION WIDTH CV 12.8 % (11.5-14.5); RED CELL DISTRIBUTION WIDTH SD 42.9 fL (36.4-46.3); WHITE BLOOD COUNT 8.88 K/uL (4.8-10.8)
[2018-04-10 06:35] LABS: ALBUMIN 3.3 gm/dl (3.4-5.0); CALCIUM 8.8 mg/dl (8.5-10.1); CREATININE 0.62 mg/dl (0.60-1.20); POTASSIUM 3.7 mmol/L (3.5-5.1)
[2018-04-10 07:20] VITALS: BP 147/81; PULSE 65; TEMP 36.7; O2SAT 95
--- NOTE | 2018-04-10 08:00 | Discharge Instructions ---
Discharge Instructions Date of Service Apr 10, 2018. Admission Reason for Admission: Acute Pancreatitis Discharge Discharge Diagnosis / Problem: pancreatitis, high blood sugar consider diabetes Discharge Goals Goal(s): Diagnostic testing, Therapeutic intervention Activity Recommendations Activity Limitations: as noted below Lifting Limitations: gradually increase as tolerated . Current Hospital Diet Patient's current hospital diet: Diabetes Type 2 Diet Discharge Diet Recommended Diet: Diabetes Type 2 Diet Pending Studies Studies pending at discharge: no Laboratory Results Hemoglobin A1c Test 04/08/18 10:45 Range/Units Estimated Average Glucose 146 mg/dl Hemoglobin A1c 6.7 H 4.5-5.6 % Lipid Panel Test 04/10/18 05:41 Range/Units Triglycerides Level 376 H 0-150 mg/dl Cholesterol Level 245 H 0-200 mg/dl HDL Cholesterol 32 mg/dl Cholesterol/HDL Ratio 7.7 LDL Cholesterol, Calculated 138 mg/dl Medical Emergencies . Who to Call and When: Medical Emergencies: If at any time you feel your situation is an emergency, please call 911 immediately. . Non-Emergent Contact Non-Emergency issues call your: Primary Care Provider Call Non-Emergent contact if: temperature is above 101, your pain is not controlled . . "Provider Documentation" section prepared by Johnathan Green. .
[2018-04-10] MEDS: LACTATED RINGER'S 1000ML 1,000 ML IV SCH (08:28)
[2018-04-10] MEDS: INSULIN ASPART 100 UNITS/ML 3 ML PEN SC SCH ×2 (08:28→12:21)
[2018-04-10 08:30] VITALS: O2SAT 95
--- NOTE | 2018-04-10 12:03 | Discharge Summary ---
Discharge Summary Date of Service Apr 10, 2018. Discharge Summary Admission Date: Apr 08, 2018 at 14:32 Discharge Date: Apr 10, 2018 Discharge Disposition: Home Principal Diagnosis: pancreatitis, transaminitis, new onset type 2 diabetes Immunizations: Have You Had Influenza Vaccine: No History of Tetanus Vaccine?: No History of Pneumococcal: No History of Hepatitis B Vaccine: Unknown Medication Reconciliation Medication Profile: No Active Prescriptions or Reported Meds Discharge Exam Review of Systems: Constitutional: No fever, No chills Abdomen: No pain, No nausea, No vomiting Psychiatric: No depression symptoms, No anhedonism, No anxiety Physical Exam: General Appearance: WD/WN, + mild distress Eyes: normal inspection, sclerae normal Abdomen / GI: normal bowel sounds, non tender, soft Hospital Course 47 y/o F without active medical issues. History of cholecystectomy 2012. Presented with acute upper abdominal pain, nausea and vomiting. Symptoms began AM of admission. She has not had fevers or diarrhea. Initial labs revealed a markedly elevated lipase and elevated LFTs consistent with obstruction. A CT abdomen demonstrated pancreatic inflammation without evidence of biliary obstruction. subsequent labs show improvement suggestive of passed stone Acute pancreatitis. likely passed a stone marked improvement it lipase, tolerated diet without recurrence of pain or elevation of lipase Hepatitis, secondary to obstruction, also improving Hyperglycemia - may be due to pancreatitis - she is at risk of DM she does have an elevated A1C to 6.7 I encouraged the patient to change her diet routine, the patient drinks large amounts of sweetened soft drinks does not do much at in general has poor diet as of the family history of diabetes in her mother. The patient wishes to have 3 months sue. To attempt to employ lifestyle modifications prior to initiating medications. This became indicated to Dr. Pina Smoking cessation counselling Total Time Spent: Greater than 30 minutes This includes examination of the patient, discharge planning, medication reconciliation, and communication with other providers. Discharge Instructions Please refer to the electronic Patient Visit Report (Discharge Instructions) for additional information.
[2018-04-10 12:57] VITALS: BP 147/81; PULSE 65; TEMP 36.7; O2SAT 95
== END 2018-04-10 13:30 | disposition home or self-care (01) | DRG 439 ==
LOC: C.EDB 10:18 → C.4E 14:32 → ENRESERV 14:52
PROVIDERS: ADMIT Internal Medicine; ATTEND Internal Medicine
DX: K85.10 Biliary acute pancreatitis without necrosis or infection (principal); Z68.41 Body mass index [BMI] 40.0-44.9, adult; E66.9 Obesity, unspecified; K75.9 Inflammatory liver disease, unspecified; F17.200 Nicotine dependence, unspecified, uncomplicated; R74.0 Nonspecific elevation of levels of transaminase and lactic acid dehydrogenase [LDH]; E11.9 Type 2 diabetes mellitus without complications; Z83.3 Family history of diabetes mellitus; Z87.442 Personal history of urinary calculi